=== PATIENT | female | born 1995 | race Caucasian/White ===

== ENCOUNTER → 2018-04-13 | Outpatient (CLI) | payer BC | LOC: M RAD 09:52 | DX: R51 Headache (principal); S06.0X0A Concussion without loss of consciousness, initial encounter | CPT/HCPCS: 70450 ==

== ENCOUNTER → 2019-12-31 | Outpatient (CLI) | payer BC ==
[~2019-12-31] MED LIST: PRENTAB9 PO
--- NOTE | 2020-01-31 11:15 | REP ---
OBSTETRIC ULTRASOUND FOR ANATOMY Delay in rejporting results from hospital computer malfunction as a result of malware. FINDINGS: There is a single intrauterine gestation in a transverse lie with the head to the maternal right. The placenta is posterior, grade 0 with no previa or abruptio. Estimated gestational age by today's ultrasound is 20 weeks 2 days. Estimated date of delivery (INES) is 05/21/2020. heart rate is 140 beats per minute. Estimated weight is 324 grams. This is the 60th percentile. Subjectively the amniotic fluid volume is normal. The cervix measures 3.3 cm in length. The following anatomic structures are suboptimally demonstrated: spine, four chamber view of the heart, cardiac ventricular outflow tracts, face, and upper lip. A dedicated follow-up study of these structures might be considered. The following structures are unremarkable: Cisterna magna, cavum septum pellucidum, thalami, stomach, kidneys, bladder, three-vessel cord, cord insertion, upper and lower extremities. MTDD
== END ==
LOC: MERGE 09:44 → M WHC 09:44
PROVIDERS: ATTEND Advanced Practice Midwife
DX: O99.212 Obesity complicating pregnancy, second trimester (principal); Z3A.20 20 weeks gestation of pregnancy

== ENCOUNTER → 2020-01-23 | Outpatient (CLI) | payer BC ==
--- NOTE | 2020-01-31 12:56 | REP ---
OBSTETRIC SONOGRAPHY: HISTORY: Follow up anatomy. FINDINGS: Scanning through the gravid uterus demonstrates a single living intrauterine gestation in a breech lie. The placenta is posterior grade 1 without evidence of previa or abruption. Amniotic fluid is subjectively normal. Closed cervical length measures 3.7 cm, viewed transabdominally. heart rate is recorded at 136 beats per minute. The spine, left-sided stomach, kidneys and bladder, four chamber heart with left and right ventricular outflow tract views, urinary bladder, three vessel cord, abdominal wall cord insertion and upper and lower extremities were viewed along with face and lips. These structures are felt to be unremarkable. BIOMETRY CHART: BPD 57 mm 23 weeks 4 days Head circumference 210 mm 23 weeks 1 day Abdominal circumference 184 mm 23 weeks 2 days Femur length 42 mm 23 weeks 6 days Humeral length 41 mm 25 weeks 1 day Estimated weight is 596 grams, 65th percentile. IMPRESSION: Viable single intrauterine gestation at 23 weeks 4 days. INES is May 17, 2020. MTDD
== END ==
LOC: M WHC 13:04
PROVIDERS: ATTEND Advanced Practice Midwife
DX: Z34.82 Encounter for supervision of other normal pregnancy, second trimester (principal)

== ENCOUNTER → 2020-02-26 | Outpatient (CLI) | payer BC ==
[2020-02-26 14:11] LABS: BASO % 0.2 % (0.0-1.0); EOS # 0.1 10^3/uL (0.0-0.5); HEMATOCRIT 35.7 % (36.0-47.0); HEMOGLOBIN 11.6 g/dl (12.0-15.5); LYMPH # 1.6 10^3/uL (1.5-5.0); LYMPH % 13.6 % (24.0-44.0); MEAN CORPUSCULAR HEMOGLOBIN 28.6 pg (27.0-33.0); MEAN CORPUSCULAR HGB CONC 32.5 g/dl (32.0-36.5); MEAN CORPUSCULAR VOLUME 88.1 fl (80.0-96.0); MONO # 0.7 10^3/uL (0.0-0.8); MONO % 5.9 % (0.0-5.0); NEUTROPHILS # 9.2 10^3/uL (1.5-8.5); NEUTROPHILS % 77.9 % (36.0-66.0); PLATELET COUNT, AUTOMATED 348 10^3/uL (150-450); RED BLOOD COUNT 4.05 10^6/uL (4.00-5.40); WHITE BLOOD COUNT 11.8 10^3/uL (4.0-10.0)
== END ==
LOC: M PLALAB 10:08
PROVIDERS: ATTEND Advanced Practice Midwife
DX: Z34.82 Encounter for supervision of other normal pregnancy, second trimester (principal); Z3A.00 Weeks of gestation of pregnancy not specified
CPT/HCPCS: 36415; 82950; 85025; 86850; 86900; 86901; J2790

== ENCOUNTER 2020-02-27 19:41 | Outpatient (CLI) | payer BC ==
[~2020-02-27] VITALS: Ht 157.5 cm; Wt 96.2 kg
[2020-02-27 20:03] VITALS: BP 136/80
[2020-02-27] MEDS ORDERED: PRENTAB9 PO (20:07)
[2020-02-27] MEDS ORDERED: RHOGAM 300 MCG (1500 IU) INJ (J2790) IM ONE (21:15)
[2020-02-27 21:57] VITALS: BP 130/81
[2020-02-27 22:16] VITALS: BP 131/84
[2020-02-27 22:40] VITALS: BP 123/72
== END 2020-02-27 22:36 | disposition home or self-care (01) ==
LOC: M LDO 19:41
PROVIDERS: ATTEND Specialist
DX: O99.89 Other specified diseases and conditions complicating pregnancy, childbirth and the puerperium (principal); V49.9XXA Car occupant (driver) (passenger) injured in unspecified traffic accident, initial encounter; Z3A.28 28 weeks gestation of pregnancy
CPT/HCPCS: 36415; 85460; 86850; 86900; 86901; 96372; G0378; G0463; J2790

== ENCOUNTER → 2020-04-02 | Outpatient (CLI) | payer BC, OTHER, SELFPAY ==
[~2020-04-02] MED LIST changes: +TUMS500C PO
== END ==
LOC: M LAB 08:11
PROVIDERS: ATTEND Obstetrics & Gynecology
DX: R73.09 Other abnormal glucose (principal)

== ENCOUNTER → 2020-04-24 | Outpatient (REF) | payer BC | LOC: M SFHCWAGY 13:12 | PROVIDERS: ATTEND Advanced Practice Midwife | DX: O99.213 Obesity complicating pregnancy, third trimester (principal); E66.9 Obesity, unspecified; Z3A.00 Weeks of gestation of pregnancy not specified ==

== ENCOUNTER → 2020-04-29 | Outpatient (CLI) | payer BC, OTHER ==
--- NOTE | 2020-04-29 13:24 | REP ---
INDICATION: SIZE DATE DICREPANCY,GROWTH,ODELL COMPARISON: 01/23/2020 TECHNIQUE: Transabdominal obstetrical ultrasound with color Doppler evaluation. FINDINGS: Examination demonstrates a single live intrauterine in cephalic presentation. motion is identified by technologist. Placenta is noted posterior and grade 2 without evidence for placenta previa or abruption. Amniotic fluid volume is normal. Cervix appears closed.. Gestational age by LMP 36 weeks 6 days with INES 05/21/2020. Gestational age by current measurements 36 weeks 4 days with INES 05/23/2020. FHR equals 139 beats per minute. ODELL: 19.8 cm (7.5-24.5) BPD: 8.9 cm thirty-five weeks 6 days HC: 32.7 cm 37 weeks 1 day AC: 32.5 cm 36 weeks 3 days FL: 7.2 cm 37 weeks 0 days HL: 6.2 cm 36 weeks 1 day HC/AC: 1.01 Estimated weight 2982 grams (48thpercentile). IMPRESSION: Single live advanced gestation in cephalic presentation demonstrating appropriate estimated weight and growth. <Electronically signed by Chris Bejarano > 04/29/20 [id number]
== END ==
LOC: M WHC 12:13
PROVIDERS: ATTEND Advanced Practice Midwife
DX: O26.843 Uterine size-date discrepancy, third trimester (principal); Z3A.36 36 weeks gestation of pregnancy

== ENCOUNTER 2020-05-05 22:23 | Outpatient (CLI) | payer BC, OTHER ==
[~2020-05-05] VITALS: Ht 157.5 cm; Wt 96.8 kg
[~2020-05-05 22:23] MED LIST changes: -TUMS500C PO
[2020-05-05 22:45] VITALS: BP 125/68
[2020-05-05 22:50] VITALS: BP 127/75
[2020-05-05] MEDS ORDERED: TUMS500C PO (23:04)
--- NOTE | 2020-05-05 23:33 | IPNPDOC ---
Obstetrical Progress Note Date of Service May 05, 2020 Subjective 24 yo G1 at 37 5/7 weeks with increasing contractions throughout the day. They started at every 15 minutes, then increased to every 8 minutes. No VB, good movement. Objective Vital Signs Date Time Temp Pulse Resp B/P (MAP) Pulse Ox O2 Delivery O2 Flow Rate FiO2 05/05/20 22:50 110 18 127/75 (92) 05/05/20 22:45 98.0 Assessment Variability: Moderate Accelerations: Positive Decelerations: None Heart Rate Tracing: Category I Tocometer Contractions: Yes Frequency: irregular Duration: less than 60 seconds Strength: palpated as mild Sterile Vaginal Examination Dilation: 1cm Effacement (%): 30% Station: -3 Cervical Consistency: Medium Cervical Position: Posterior Assessment and Plan Age: 24 : 1 Term: 0 Status: Reassuring Additional Comments 24 yo G1 at 37 5/7 weeks with contractions, not in labor Pt observed for extended time No sign of labor oral hydration fu office 05/06/2020 as scheduled NICOLE LEAVITT MD May 05, 2020 23:33
== END 2020-05-05 23:40 | disposition home or self-care (01) ==
LOC: M LDO 22:23
PROVIDERS: ATTEND Specialist
DX: O26.893 Other specified pregnancy related conditions, third trimester (principal); O47.1 False labor at or after 37 completed weeks of gestation; Z3A.37 37 weeks gestation of pregnancy

== ENCOUNTER 2020-05-20 12:54 | Inpatient (IN) | payer BC, OTHER ==
[~2020-05-20] VITALS: Ht 157.5 cm; Wt 94.4 kg
[2020-05-20] VITALS (10 sets, daily range): BP systolic 110–139; BP diastolic 67–92
[~2020-05-20 12:54] MED LIST changes: +TUMS500C PO
--- NOTE | 2020-05-20 14:37 | HPE ---
HISTORY AND PHYSICAL DATE OF ADMISSION: 05/20/2020 HISTORY OF PRESENT ILLNESS: Fiordaliza is a 24-year-old 2 para 0-0-1-0 at 39 and 6/7 weeks gestation with an EDC of 05/21/20 based on first trimester ultrasound. She presents to Labor and Delivery today following routine appointment in the office where she was noted to have elevated blood pressure x2. She denies a headache, visual disturbances, epigastric pain and right upper quadrant discomfort. She denies vaginal bleeding, leakage of fluid and regular painful contractions. The fetus has been active. Her care was initiated at [facility] in the first trimester. course complicated by former smoker, she quit when she became and obesity. OBSTETRIC HISTORY: Elective termination of . OBSTETRIC LABS: O negative, antibody screen negative, syphilis negative, gonorrhea and chlamydia negative, hepatitis B surface antigen negative, Hep C antibody non-reactive, HIV non-reactive, rubella immune. GBS abnormal at 139. Three hour gestational glucose tolerance test normal. Fasting 93, one hour 157, two hour 166 and three hour 124. GBS is negative. PAST MEDICAL HISTORY: Childhood varicella. Obesity. PAST SURGICAL HISTORY: None. FAMILY HISTORY: Leukemia and kidney cancer. SOCIAL HISTORY: The patient is single, however the father of the baby is en route to the hospital. She is a nonsmoker. She denies alcohol and drug use. She denies a history of sexually transmitted infections. She denies a history of abuse, physical, sexual and emotional. ALLERGIES: No known drug allergies. CURRENT MEDICATIONS: 1. vitamin. OBJECTIVE: VITAL SIGNS: Temperature 98.1, pulse 111, BP is 133/73, 134/75, 138/92. heart rate is 135 with moderate variability, positive accelerations, no decelerations. There is no pattern of regular contractions. ABDOMEN: Her abdomen is gravid, cephalic, presentation. Estimated weight approximately 8 pounds. GENITALIA: Sterile vaginal exam: 2 to 3 cm dilated, 50% effaced, -3 station, posterior, moderate texture, no show with the exam. ASSESSMENT: Intrauterine at 39 and 6/7 weeks, heart rate Category 1. Gestational hypertension/preeclampsia. PLAN: Admit the patient to Labor and Delivery for induction of labor per consult with Dr. Thad Feliciano. Routine laboratories with the addition of a preeclamptic profile and a spot urine. Saline lock for IV access. Out of bed ad bautista. Regular diet at this time. Start Misoprostol 50 mcg p.o. q. 4 hours for cervical ripening. Will likely start IV Pitocin, consider assisted rupture of membranes for labor augmentation. The patient desires to avoid an epidural. I did review risks, benefits and alternatives. All of her questions have been answered. I did verbally consent her for emergency surgery and blood products if they are necessary. I do anticipate cervical ripening and labor.
[2020-05-20] MEDS: miSOPROStol 50MCG 1/2 TABLET PO SCH ×2 (15:00→19:59)
[2020-05-20 15:34] LABS: HEMATOCRIT 38.1 % (36.0-47.0); HEMOGLOBIN 11.7 g/dl (12.0-15.5); MEAN CORPUSCULAR HEMOGLOBIN 25.1 pg (27.0-33.0); MEAN CORPUSCULAR HGB CONC 30.7 g/dl (32.0-36.5); MEAN CORPUSCULAR VOLUME 81.8 fl (80.0-96.0); PLATELET COUNT, AUTOMATED 386 10^3/uL (150-450); RED BLOOD COUNT 4.66 10^6/uL (4.00-5.40); WHITE BLOOD COUNT 11.5 10^3/uL (4.0-10.0)
[2020-05-20 15:53] LABS: ALT/SGPT 13 U/L (12-78); BILIRUBIN,TOTAL 0.4 MG/DL (0.2-1.0); CREATININE FOR GFR 0.77 MG/DL (0.55-1.30); GLOMERULAR FILTRATION RATE > 60.0 (>60); LDH LACTATE DEHYDROGENASE 157 U/L (84-246); URIC ACID 6.7 MG/DL (2.6-6.0)
[2020-05-20 15:54] LABS: CREATININE,RANDOM URINE 92.6 MG/DL; TOTAL PROTEIN,RANDOM URINE 18.6 MG/DL (0.0-12.0)
[2020-05-21] VITALS (52 sets, daily range): BP systolic 101–183; BP diastolic 55–104
[2020-05-21] MEDS: miSOPROStol 50MCG 1/2 TABLET PO SCH (00:27)
[2020-05-21] MEDS ORDERED: OXYTOCIN DRIP 30 UNITS in IV 1 EA IV SCH ×2 (03:15→23:55)
[2020-05-21] MEDS: LR 1,000 ML IV SCH ×4 (04:28→17:28)
[2020-05-21] MEDS ORDERED: BUTORPHANOL 2 MG/ML INJ (J0595) IV PRN (09:45)
[2020-05-21] MEDS ORDERED: PROMETHAZINE INJ 25 MG/ML VIAL (J2550) IV ONE (09:45)
--- NOTE | 2020-05-21 09:47 | IPNPDOC ---
Text Note Date of Service The patient was seen on 05/21/20. NOTE Intrapartum Note Fiordaliza is a 24yo with SIUP at 40w0d undergoing IOL for GHTN (urine protein:creat 0.2) diagnosed yesterday at routine OB visit. She had IOL started with cytotec and this morning at 0429 pitocin was started. She is starting to feel strong painful ctx and is interested in pain meds. Vitals wnl, afebrile Cat I FHRT with +accels, -decels, mod elsie Ctx q2-3min SCE: /-2, posterior Plan to continue pitocin, titrate per protocol IV stadol 2mg q4hr prn with IV phenergan 12.5mg once in latent labor, candidate for epidural in active labor Will continue to closely monitor Safe to proceed Eda So MD VSMeli, I+O VSMeli I+O Laboratory Tests 05/20/20 14:23 Vital Signs Date Time Temp Pulse Resp B/P (MAP) Pulse Ox O2 Delivery O2 Flow Rate FiO2 05/21/20 07:26 97.9 78 16 Room Air 05/21/20 06:30 124/82 (96) Eda So MD May 21, 2020 09:47
[2020-05-21] MEDS ORDERED: FENTANYL 2MCG/ML ROPIVACAINE 0.2% IN 0.9% NACL 100ML IVBAG As Ordered ONE (14:35)
[2020-05-21 15:08] LABS: HEMATOCRIT 37.6 % (36.0-47.0); HEMOGLOBIN 11.6 g/dl (12.0-15.5); MEAN CORPUSCULAR HEMOGLOBIN 25.3 pg (27.0-33.0); MEAN CORPUSCULAR HGB CONC 30.9 g/dl (32.0-36.5); MEAN CORPUSCULAR VOLUME 82.1 fl (80.0-96.0); PLATELET COUNT, AUTOMATED 367 10^3/uL (150-450); RED BLOOD COUNT 4.58 10^6/uL (4.00-5.40)
[2020-05-21] MEDS ORDERED: ONDANSETRON 4MG/2ML VIAL IV PRN (16:00)
[2020-05-21] MEDS ORDERED: LACTATED RINGER'S 1000 ML IV PRN (16:00)
[2020-05-21] MEDS ORDERED: NALOXONE INJ 0.4MG/1ML VIAL (J2310 PER 1MG) IV PRN (16:00)
[2020-05-21] MEDS ORDERED: ePHEDrine SULFATE 25 MG/5 ML(5MG/ML) SYRINGE IV PRN (16:00)
[2020-05-21] MEDS ORDERED: REFRIGERATOR IV KEYS XX PRN (16:00)
[2020-05-21] MEDS ORDERED: diphenhydrAMINE 50MG/ML VIAL (J1200) IV PRN (16:00)
[2020-05-21] MEDS ORDERED: FENTANYL/ROPIVACAINE/NACL BAG 100 ML EPIDURAL SCH (16:00)
[2020-05-21] MEDS ORDERED: EPIDURAL COMMENT XX SCH (16:00)
[2020-05-21] MEDS ORDERED: EPIDURAL/PCA KEYS XX PRN (16:00)
--- NOTE | 2020-05-21 18:03 | IPNPDOC ---
Text Note Date of Service The patient was seen on 05/21/20. NOTE Intrapartum Note Pt doing well, pain controlled with epidural, feeling some rectal pressure with ctx. Vitals wnl, afebrile Cat I FHRT with bl 125 +accels -decels mod elsie [place]: ctx q2-4min SCE: 8-9/80/-1, AROM performed with clear fluid noted. FSE placed to facilitate easier FHRT Plan to continue to titrate pitocin to adequate ctx pattern Will continue to closely monitor Safe to proceed Eda So MD VS,Meli, I+O VSMeli I+O Laboratory Tests 05/21/20 14:59 Vital Signs Date Time Temp Pulse Resp B/P (MAP) Pulse Ox O2 Delivery O2 Flow Rate FiO2 05/21/20 10:45 16 05/21/20 10:13 97.5 Room Air 05/21/20 07:26 78 05/21/20 06:30 124/82 (96) Eda So MD May 21, 2020 18:03
[2020-05-22] MEDS ORDERED: IBUPROFEN 800 MG TAB PO PRN
[2020-05-22] MEDS ORDERED: MEASLES,MUMPS,RUBELLA VACCINE INJ (MMR-II) (90707) SC SCH
[2020-05-22] MEDS ORDERED: IBUPROFEN 600MG TAB PO PRN
[2020-05-22] MEDS ORDERED: BENZOCAINE 20% HEMORRHOIDAL OINTMENT 28GM TUBE TOP PRN
[2020-05-22] MEDS ORDERED: ACETAMINOPHEN TAB 650MG DOSE (2X325MG) PO PRN
[2020-05-22] MEDS ORDERED: RHOGAM 300 MCG (1500 IU) INJ (J2790) IM SCH
[2020-05-22 00:01] VITALS: BP 131/83
[2020-05-22 00:46] VITALS: BP 163/88
[2020-05-22 00:47] VITALS: BP 145/80
[2020-05-22 01:34] VITALS: BP 134/80
--- NOTE | 2020-05-22 04:28 | DNPDOC ---
[facility] Delivery Note Delivery Note DATE OF DELIVERY: 05/22/2020 PREDELIVERY DIAGNOSIS: 40w0d IOL for GHTN POST DELIVERY DIAGNOSIS: Delivered. PROCEDURE: Spontaneous vaginal delivery PILOT INSTRUCTOR: Dr. Eda So MD ANESTHESIA: epidural ESTIMATED BLOOD LOSS: 300 mL. FINDINGS: 7 pound 0 ounce (3170g) female infant, Score 9/9 DELIVERY SUMMARY: Fiordaliza is a 24yo [id number] s/p uncomplicated at 40w0d after undergoing IOL for GHTN, delivering at 2313 on 05/21/20. She had induction started with cytotec, then received IV pitocin. She received an epidural and had AROM, clear. She progressed over time to C/C/0 and did passive descent for a time, until she began pushing. With good maternal effort, head delivered OA and restituted LUAN. Left anterior shoulder delivered followed by posterior shoulder and corpus. There was a right compound hand noted. placed on maternal abdomen and had lusty cry, apgars 9/9. Nose and mouth suctioned with bulb suction. After two minutes, cord clamped x2 and cut by FOB. With fundal massage and traction on the cord, placenta delivered spontaneously and intact with 3 vessel centrally inserted umbilical cord. Cord blood obtained for MBT O neg. More uterine massage performed, IV pitocin bolus given, and fundus firmed to u-2cm. Hemostasis noted. Inspection of perineum and vagina revealed small 2mll and two small bilateral labial lacerations, repaired with 3-0 vicryl in routine fashion with complete reapproximation and hemostasis. All counts correct x2. Mom and infant were doing well when I left the room. MD Judah Reyes Katrina D MD May 22, 2020 04:28
[2020-05-22 05:57] VITALS: BP 124/81
[2020-05-22] MEDS: DOCUSATE SODIUM 100MG CAPSULE PO SCH ×2 (08:04→21:05)
[2020-05-22] MEDS: PRENATAL VITAMINS CHEWABLE TABLET PO SCH (08:04)
[2020-05-22] MEDS: ACETAMINOPHEN 500 MG TAB PO PRN (15:12)
[2020-05-22 18:00] VITALS: BP 116/81
[2020-05-23 05:40] VITALS: BP 115/74
[2020-05-23] MEDS: DOCUSATE SODIUM 100MG CAPSULE PO SCH (08:47)
[2020-05-23] MEDS: PRENATAL VITAMINS CHEWABLE TABLET PO SCH (08:48)
[2020-05-23] MEDS: ACETAMINOPHEN 500 MG TAB PO PRN (08:48)
[2020-05-23 17:55] VITALS: BP 138/89
== END 2020-05-23 18:10 | disposition home or self-care (01) | DRG 560 ==
LOC: M LDI 12:54 → M OBS 05-22 01:18
PROVIDERS: ADMIT Advanced Practice Midwife; ATTEND Advanced Practice Midwife
PROC: 10E0XZZ Delivery of Products of Conception, External Approach (ICD-10-PCS; principal; 2020-05-21)
PROC: 3E0P7GC Introduction of Other Therapeutic Substance into Female Reproductive, Via Natural or Artificial Opening (ICD-10-PCS; 2020-05-21)
PROC: 10907ZC Drainage of Amniotic Fluid, Therapeutic from Products of Conception, Via Natural or Artificial Opening (ICD-10-PCS; 2020-05-21)
PROC: 0HQ9XZZ Repair Perineum Skin, External Approach (ICD-10-PCS; 2020-05-21)
PROC: 0KQM0ZZ Repair Perineum Muscle, Open Approach (ICD-10-PCS; 2020-05-21)
DX: O13.4 Gestational [pregnancy-induced] hypertension without significant proteinuria, complicating childbirth (principal); O64.5XX0 Obstructed labor due to compound presentation, not applicable or unspecified; Z3A.40 40 weeks gestation of pregnancy; Z37.0 Single live birth; O99.214 Obesity complicating childbirth; E66.9 Obesity, unspecified; O70.1 Second degree perineal laceration during delivery; O70.0 First degree perineal laceration during delivery

== ENCOUNTER 2020-06-13 01:51 | Inpatient (IN) | payer OTHER ==
[~2020-06-13] VITALS: Ht 157.5 cm; Wt 84.8 kg
[2020-06-13] MEDS ORDERED: ACET-861 PO (01:57)
[2020-06-13] MEDS ORDERED: GAS125CH10 PO (01:57)
[2020-06-13] MEDS ORDERED: KETOROLAC 30 MG/ML 1ML VIAL IV ONE (06:00)
[2020-06-13] MEDS ORDERED: ONDANSETRON 4MG/2ML VIAL IV ONE (06:00)
[2020-06-13 06:24] LABS: BASO % 0.3 % (0.0-1.0); EOS # 0.1 10^3/uL (0.0-0.5); EOS % 0.4 % (0.0-3.0); HEMOGLOBIN 12.7 g/dl (12.0-15.5); LYMPH # 0.9 10^3/uL (1.5-5.0); LYMPH % 7.3 % (24.0-44.0); MEAN CORPUSCULAR HEMOGLOBIN 25.1 pg (27.0-33.0); MEAN CORPUSCULAR HGB CONC 30.2 g/dl (32.0-36.5); MEAN CORPUSCULAR VOLUME 83.2 fl (80.0-96.0); MONO # 0.4 10^3/uL (0.0-0.8); MONO % 3.7 % (0.0-5.0); NEUTROPHILS # 10.2 10^3/uL (1.5-8.5); PLATELET COUNT, AUTOMATED 399 10^3/uL (150-450); RED BLOOD COUNT 5.05 10^6/uL (4.00-5.40); WHITE BLOOD COUNT 11.6 10^3/uL (4.0-10.0)
[2020-06-13 06:58] LABS: ALBUMIN 3.4 GM/DL (3.2-5.2); ALT/SGPT 359 U/L (12-78); BILIRUBIN,DIRECT 1.4 MG/DL (0.0-0.2); BILIRUBIN,TOTAL 2.1 MG/DL (0.2-1.0); BLOOD UREA NITROGEN 15 MG/DL (7-18); CALCIUM LEVEL 9.2 MG/DL (8.5-10.1); CARBON DIOXIDE LEVEL 28 MEQ/L (21-32); CHLORIDE LEVEL 107 MEQ/L (98-107); CREATININE FOR GFR 0.92 MG/DL (0.55-1.30); GLOMERULAR FILTRATION RATE > 60.0 (>60); GLUCOSE, FASTING 111 MG/DL (70-100); LIPASE 20709 U/L (73-393); POTASSIUM SERUM 4.4 MEQ/L (3.5-5.1); SODIUM LEVEL 139 MEQ/L (136-145); TOTAL PROTEIN 6.9 GM/DL (6.4-8.2)
[2020-06-13] MEDS ORDERED: NS 1,000 ML IV ONE (08:15)
--- NOTE | 2020-06-13 08:29 | REP ---
INDICATION: RUQ pain COMPARISON: None. TECHNIQUE: Real time newman scale ultrasound examination using curved array transducer. FINDINGS: Liver is relatively normal in appearance and includes subcentimeter cyst in the right lobe. Visualized portions of the pancreas are unremarkable. Gallbladder demonstrates wall thickening to 3.8 mm and gallstones without pericholecystic fluid or biliary ductal dilatation. The common bile duct measures 4.2 mm diameter. Right kidney is normal in reniform shape without hydronephrosis and measures 10.3 x 4.0 x 3.3 cm. No ascites in the visualized right upper quadrant. IMPRESSION: 1. Cholelithiasis and gallbladder wall thickening. Findings are equivocal for acute cholecystitis and should be correlated clinically. No biliary ductal dilatation noted. 2. Incidental sub cm benign-appearing hepatic cyst. <Electronically signed by Chris Bejarano > 06/13/20 0827
[2020-06-13] MEDS ORDERED: PREN1TAB9 PO (08:45)
[2020-06-13] MEDS ORDERED: ACETAMINOPHEN TAB 650MG DOSE (2X325MG) PO PRN (10:30)
[2020-06-13] MEDS ORDERED: KETOROLAC 30 MG/ML 1ML VIAL IV PRN (10:30)
--- NOTE | 2020-06-13 10:36 | HPEPDOC ---
General Date of Admission 06/13/20 Date of Service: Jun 13, 2020 Chief Complaint The patient is a 24-year-old female admitted with a reason for visit of Chest And Back Pain. Source: Patient Exam Limitations: No limitations Timing/Duration: Day(s) Severity: Moderate History of Present Illness Patient is 24 years old female 3 months presented to the hospital with severe abdominal pain. Patient stated that she's been having abdominal pain at the right upper quadrant with radiation to the back for past 48 hours. Patient stated that she had a nausea but not vomiting. In ER patient was found to have elevated lipase level 20,700, total bilirubin 2.1, direct bilirubin 1.4, AST 452, ALT 287. Ultrasound showed . Cholelithiasis and gallbladder wall thickening. Findings are equivocal for acute cholecystitis and should be correlated clinically. No biliary ductal dilatation noted. Home Medications Scheduled Acetaminophen (Acetaminophen) 500 Mg Tablet, 1,000 MG PO Q6H for fever, (Reported) 114/Iron A-G/Folate 1 (Prenate Elite Tablet) 1 Each Tablet, 1 TAB PO DAILY, (Reported) Scheduled PRN Simethicone (Gas Relief) 125 Mg Tab.chew, 125 MG PO Q6H PRN for GAS PAIN, (Reported) Allergies Coded Allergies: Common Ragweed (Verified Allergy, Mild, 02/27/20) Past Medical History Medical History Tobacco abuse Surgical History No surgical history Family History Father has kidney cancer Social History * Smoker: current smoker Alcohol: Denies Drugs: denies A-FIB/CHADSVASC A-FIB History Current/History of A-Fib/PAF?: No Current PO Anticoag Therapy: No Review of Systems Constitutional: Denies: Chills, Fever Eyes: Denies: Pain ENT: Denies: Head Aches Skin: Denies: Rash, Lesions Pulmonary: Denies: Dyspnea Cardiovascular: Denies: Chest Pain, Palpitations Gastrointestinal: Reports: Nausea, Abdominal Pain Genitourinary: Denies: Dysuria Endocrine: Denies: Polydipsia Musculoskeletal: Denies: Neck Pain Neurological: Denies: Weakness Psych: Reports: Mood Normal Physical Examination General Exam: Positive: Alert, Cooperative Eye Exam: Positive: PERRLA ENT Exam: Positive: Atraumatic Neck Exam: Positive: Supple; Negative: JVD Chest Exam: Positive: Clear to auscultation Heart Exam: Positive: Rate Normal Telemetry: Positive: No significant arrhythmia Abdomen Exam: Positive: BS Hypoactive, Tenderness (mild right upper quadrant) Extremity Exam: Negative: Clubbing Skin Exam: Positive: Nl turgor and temperature Neuro Exam: Positive: Normal Gait, Strength at 5/5 X4 ext Psych Exam: Positive: Mental status NL Vital Signs Vital Signs Date Time Temp Pulse Resp B/P (MAP) Pulse Ox O2 Delivery O2 Flow Rate FiO2 06/13/20 08:39 83 115/71 (86) 96 Room Air 06/13/20 06:50 16 06/13/20 01:51 97.6 Laboratory Data Labs 24H Laboratory Tests 2 06/13/20 06:15: Immature Granulocyte % (Auto) 0.3, Neutrophils (%) (Auto) 88.0H, Lymphocytes (%) (Auto) 7.3L, Monocytes (%) (Auto) 3.7, Eosinophils (%) (Auto) 0.4, Basophils (%) (Auto) 0.3, Neutrophils # (Auto) 10.2H, Lymphocytes # (Auto) 0.9L, Monocytes # (Auto) 0.4, Eosinophils # (Auto) 0.1, Basophils # (Auto) 0.0, Nucleated Red Blood Cells % (auto) 0.0, Anion Gap 4L, Glomerular Filtration Rate > 60.0, Calcium Level 9.2, Total Bilirubin 2.1H, Direct Bilirubin 1.4H, Aspartate Amino Transf (AST/SGOT) 452H, Alanine Aminotransferase (ALT/SGPT) 359H, Alkaline Phosphatase 287H, Total Protein 6.9, Albumin 3.4, Albumin/Globulin Ratio 1.0L, Lipase [id number] 06/13/20 08:24: Coronavirus (COVID-19)(PCR) NEGATIVE CBC/BMP Laboratory Tests 06/13/20 06:15 Assessment/Plan Patient is 24 years old female 3 months presented to the hospital with severe abdominal pain. Patient stated that she's been having abdominal pain at the right upper quadrant with radiation to the back for past 48 hours. Patient stated that she had a nausea but not vomiting. In ER patient was found to have elevated lipase level 20,700, total bilirubin 2.1, direct bilirubin 1.4, AST 452, ALT 287. Ultrasound showed . Cholelithiasis and gallbladder wall thicke chin. Findings are equivocal for acute cholecystitis and should be correlated clinically. No biliary ductal dilatation noted. Problems (1) Gallstone pancreatitis Status: Acute Problem Text: Ultrasound showed no CBD dilatation Lipase elevated to 20,000, alkaline phosphatase 257 Patient was pain-free when I saw her Most likely patient passed a stone Aggressive IV fluid Pain management Clear liquid diet Appreciate/agree with surgical consult Plan / VTE VTE Prophylaxis Ordered?: Yes RAGHAVENDRA LARA DO Jun 13, 2020 10:36
[2020-06-13 11:05] LABS: TRIGLYCERIDES LEVEL 101 MG/DL (<150)
[2020-06-13 13:35] VITALS: BP 128/71
[2020-06-13] MEDS: NS 1,000 ML IV SCH ×3 (14:23→20:10)
[2020-06-13 20:00] VITALS: BP 114/72
[2020-06-13] MEDS: HEPARIN SOD (PORCINE) 5000UNITS/ML 1ML VIAL/SYRINGE SC SCH (20:11)
[2020-06-14] MEDS: NS 1,000 ML IV SCH ×3 (00:05→08:24)
[2020-06-14 06:00] VITALS: BP 108/67
[2020-06-14 06:20] LABS: HEMATOCRIT 34.2 % (36.0-47.0); MEAN CORPUSCULAR HEMOGLOBIN 25.3 pg (27.0-33.0); MEAN CORPUSCULAR HGB CONC 29.2 g/dl (32.0-36.5); MEAN CORPUSCULAR VOLUME 86.4 fl (80.0-96.0); PLATELET COUNT, AUTOMATED 306 10^3/uL (150-450); RED BLOOD COUNT 3.96 10^6/uL (4.00-5.40); WHITE BLOOD COUNT 6.6 10^3/uL (4.0-10.0)
[2020-06-14 06:59] LABS: ALBUMIN 2.7 GM/DL (3.2-5.2); ALT/SGPT 205 U/L (12-78); BILIRUBIN,TOTAL 0.5 MG/DL (0.2-1.0); BLOOD UREA NITROGEN 10 MG/DL (7-18); CARBON DIOXIDE LEVEL 24 MEQ/L (21-32); CHLORIDE LEVEL 114 MEQ/L (98-107); CREATININE FOR GFR 0.77 MG/DL (0.55-1.30); GLOMERULAR FILTRATION RATE > 60.0 (>60); GLUCOSE, FASTING 74 MG/DL (70-100); MAGNESIUM LEVEL 1.8 MG/DL (1.8-2.4); POTASSIUM SERUM 4.2 MEQ/L (3.5-5.1); SODIUM LEVEL 142 MEQ/L (136-145); TOTAL PROTEIN 5.3 GM/DL (6.4-8.2)
--- NOTE | 2020-06-14 07:38 | CR.PDOC ---
General Surgery Consultation Date of Consultation 06/13/20 History and Physical CONSULT REPORT FOR: Dr. Hill (hospitalist [facility]) REASON FOR CONSULTATION: Abdominal pain/gallstone pancreatitis HISTORY OF PRESENT ILLNESS: Patient is a healthy 24-year-old female who is about 3 weeks who presented to the emergency room with an roughly about 4 days on and off abdominal pain, exacerbated and worsened overnight with nausea. She has successful vaginal delivery in 05/20/2020 at 39 weeks to healthy baby girl and currently breast-feeding. She denies any prior biliary colic type pain, did not have any symptoms during her . For the past 4 days she reports some burning, intermittent, crampy pain centered on her upper epigastric area exacerbated with eating. She has been using Tums and Gas-X with intermittent, variable relief. Overnight this worsened increased in severity and became constant. She does presented to the emergency room early this morning. She was found to have evidence for acute pancreatitis associated with gallstones. She has been admitted to the hospitalist service was asked to see the patient for further recommendations. PAST MEDICAL HISTORY: 1. Obesity with BMI 38. 2. 3 weeks , normal vaginal delivery PAST SURGICAL HISTORY: INCLUDES: 1. No past surgical history. PREVIOUS ANESTHESIA REACTIONS: None ALLERGIES: Please see below. FAMILY HISTORY: Noncontributory. HOME MEDICATIONS: Please see below. REVIEW OF SYSTEMS: GENERAL: Patient was recovering at home after successful to a healthy baby girl. She is breast-feeding. She reports no residual shortness of breath, high blood pressure, leg swelling from her . She was in her usual state of health prior to starting for symptoms about 4 days ago. She denies any accompanying fevers or chills.. HEENT: Denies blurred vision and double vision. Denies ear symptoms. Denies hoarseness. NECK: Denies any neck pain CARDIOVASCULAR: Denies chest pain and palpitations. MUSCULOSKELETAL: Denies arthralgias, back pain and thrombophlebitis. SKIN: Denies rash. NEUROLOGIC: Denies any headaches. PSYCHIATRIC: Denies anxiety and depression. HEMATOLOGY/ONCOLOGY: Denies bleeding or clotting disorder. HEART: Denies any chest pains, palpitations, paroxysmal dyspnea, orthopnea. PULMONARY: Denies chronic cough, dyspnea and wheezing. GASTROINTESTINAL: See HPI. GENITOURINARY: Denies dysuria, frequency, hematuria and nocturia. ENDOCRINE: Denies polydipsia, polyphagia, polyuria, heat or cold intolerance. INFECTIOUS: Denies any recent upper respiratory tract infection, UTI, need for use of antibiotics. NUTRITION: Reports fair appetite. PHYSICAL EXAMINATION: VITALS SIGNS: Please see below. GENERAL APPEARANCE: Patient seen, laying in bed and appears comfortable. She reports that her pain is moderately better since her presentation. She is currently denying any nausea. SKIN: Warm and dry. No jaundice. HEENT: Normocephalic, atraumatic. [place] palpebral conjunctiva, anicteric sclerae. Lips and mucosa appear moist. NECK: Supple, no thyromegaly. No obvious jugular venous distention. LUNGS: Clear to auscultation bilaterally. No wheezing appreciated. HEART: No chest wall abnormalities. Regular rate and rhythm with no murmurs appreciated. ABDOMEN: Abdomen is obese, soft, nondistended. No evidence of umbilical or groin herniations. No prior surgical scars. Uterine fundus nonpalpable. Nontender on palpation over the epigastric area. No rebound or guarding. EXTREMITIES: No edema ANCILLARIES: . LABORATORY DATA: Please see below. IMAGING STUDIES: US of gallbladder IMPRESSION AND PLAN: Acute biliary pancreatitis cholelithiasis recent postopartum Patient symptoms is consistent with acute pancreatitis secondary to gallstones. She is clinically improving. No signs of severe systemic inflammatory response, severe dehydration. The pain is improved since presentation. She has a mild elevation of her LFTs, elevation of her lipase to 20,000 consistent with her history. She has evidence for gallstones on ultrasound. Since she is already getting better, coupled with the fact that she is recently , currently breast-feeding, I think we can manage her nonoperatively. started on clear liquids and we can advance her to a low fat diet if she is able to tolerate this. I spoke to her about performing an interval cholecystectomy. We can discharge her home in she's tolerating diet and her symptoms have improved. She can continue to breast-feed. I'll see her in the clinic and schedule her for interval cholecystectomy to prevent recurrence of symptoms within a month's time. Follow up with me in 1-2 weeks so we can schedule her surgery as an outpatient. She can temporarily hold breast-feeding 24 hours perioperatively and most likely can resume diet and breast-feeding after the cholecystectomy. Follow the LFTs. Most of the time this will improve on its own and does not need any ERCP or other intervention. Vital Signs Vital Signs Date Time Temp Pulse Resp B/P (MAP) Pulse Ox O2 Delivery O2 Flow Rate FiO2 06/13/20 13:35 98.8 82 16 128/71 (90) 96 Room Air Laboratory Data Labs 24H Laboratory Tests 2 06/13/20 06:15: Immature Granulocyte % (Auto) 0.3, Neutrophils (%) (Auto) 88.0H, Lymphocytes (%) (Auto) 7.3L, Monocytes (%) (Auto) 3.7, Eosinophils (%) (Auto) 0.4, Basophils (%) (Auto) 0.3, Neutrophils # (Auto) 10.2H, Lymphocytes # (Auto) 0.9L, Monocytes # (Auto) 0.4, Eosinophils # (Auto) 0.1, Basophils # (Auto) 0.0, Nucleated Red Blood Cells % (auto) 0.0, Anion Gap 4L, Glomerular Filtration Rate > 60.0, Calcium Level 9.2, Total Bilirubin 2.1H, Direct Bilirubin 1.4H, Aspartate Amino Transf (AST/SGOT) 452H, Alanine Aminotransferase (ALT/SGPT) 359H, Alkaline Phosphatase 287H, Total Protein 6.9, Albumin 3.4, Albumin/Globulin Ratio 1.0L, Triglycerides Level 101, Lipase [id number] 06/13/20 08:24: Coronavirus (COVID-19)(PCR) NEGATIVE CBC/BMP Laboratory Tests 06/13/20 06:15 Home Medications Scheduled Acetaminophen (Acetaminophen) 500 Mg Tablet, 1,000 MG PO Q6H for fever, (Reported) 114/Iron A-G/Folate 1 (Prenate Elite Tablet) 1 Each Tablet, 1 TAB PO DAILY, (Reported) Scheduled PRN Simethicone (Gas Relief) 125 Mg Tab.chew, 125 MG PO Q6H PRN for GAS PAIN, (Reported) Allergies Coded Allergies: Common Ragweed (Verified Allergy, Mild, 02/27/20) JENELLE TSANG MD Jun 13, 2020 15:47
[2020-06-14] MEDS: HEPARIN SOD (PORCINE) 5000UNITS/ML 1ML VIAL/SYRINGE SC SCH (08:24)
--- NOTE | 2020-06-14 20:57 | DS.PDOC ---
Discharge Summary General Date of Admission Jun 13, 2020 at 10:23 Date of Discharge 06/14/20 Discharge Summary PROCEDURES PERFORMED DURING STAY: [None]. ADMITTING DIAGNOSES: Gallstone pancreatitis DISCHARGE DIAGNOSES: Gallstone pancreatitis COMPLICATIONS/CHIEF COMPLAINT: Gallstone Pancreatitis. HISTORY OF PRESENT ILLNESS:Patient is 24 years old female 3 months presented to the hospital with severe abdominal pain. Patient stated that she's been having abdominal pain at the right upper quadrant with radiation to the back for past 48 hours. Patient stated that she had a nausea but not vomiting. In ER patient was found to have elevated lipase level 20,700, total bilirubin 2.1, direct bilirubin 1.4, AST 452, ALT 287. Ultrasound showed . Cholelithiasis and gallbladder wall thickening. Findings are equivocal for acute cholecystitis and should be correlated clinically. No biliary ductal dilatation noted. HOSPITAL COURSE: During hospital stay following issues addressed Gallstone pancreatitis Ultrasound showed no CBD dilatation Lipase elevated to 20,000, alkaline phosphatase 257 Patient was pain-free when I saw her Most likely patient passed a stone Patient received Aggressive IV fluid Pain management DISCHARGE MEDICATIONS: Please see below. ALLERGIES: Please see below. PHYSICAL EXAMINATION ON DISCHARGE: VITAL SIGNS: Please see below. GENERAL APPEARANCE: NAD HEENT: no scleral icterus, no JVD, EOMI CARDIOVASCULAR: S1S2 LUNGS: CTA ABDOMEN: soft & not tender w palpitation MUSCULOSKELETAL: no cyanosis, no swelling INTEGUMENT: no generalized palor NEUROLOGICAL: cranial nerve function from 2-12 intact intact, follows commands, speech not dysarthric LABORATORY DATA: Please see below. IMAGING: [facility] NAME: OLIVE CORTES DATE OF : 1995 AGE: 24 SEX: F REPORT #: [id number] ROOM: ED TECHNOLOGIST: Agustin DOCTOR: Frederick Michel M.D. Ordered for Date&Time: 06/13/20 0626 cc: [~ rep ct ivnm] Service Date&Time: 06/13/20 0810 This report is in Signed status. If this report is in a DRAFT status it has not yet been reviewed by the radiologist for accuracy. Thank you for having your radiology procedures performed at [facility] RADIOLOGY REPORT Date&Time printed: [~ rep prt dt last] [~ rep prt tm last] Page 2 of [address] [address] RADIOLOGY REPORT This report is in Signed status. If this report is in a DRAFT status it has not yet been reviewed by the radiologist for accuracy. Thank you for having your radiology procedures performed at [facility] RADIOLOGY REPORT Date&Time printed: [~ rep prt dt last] [~ rep prt tm last] Page 1 of 1 COMPARISON: None. TECHNIQUE: Real time newman scale ultrasound examination using curved array transducer. FINDINGS: Liver is relatively normal in appearance and includes subcentimeter cyst in the right lobe. Visualized portions of the pancreas are unremarkable. Gallbladder demonstrates wall thickening to 3.8 mm and gallstones without pericholecystic fluid or biliary ductal dilatation. The common bile duct measures 4.2 mm diameter. Right kidney is normal in reniform shape without hydronephrosis and measures 10.3 x 4.0 x 3.3 cm. No ascites in the visualized right upper quadrant. IMPRESSION: 1. Cholelithiasis and gallbladder wall thickening. Findings are equivocal for acute cholecystitis and should be correlated clinically. No biliary ductal dilatation noted. 2. Incidental sub cm benign-appearing hepatic cyst. <Electronically signed by Chris Bejarano > 06/13/20825 DD: Chris Bejarano MD 06/13/20823 DT: RONNIE 06/13/20825 DS: CHANDANA 06/13/2082306/13/20823 [~ rep ct labl] PROGNOSIS: Fair ACTIVITY: [As tolerated]. DIET: Avoid fatty food DISPOSITION: 01 Home, Self-Care. ITEMS TO FOLLOWUP ON ON OUTPATIENT: Follow-up with surgical team in 2-4 weeks for elective cholecystectomy DISCHARGE CONDITION: [Stable]. TIME SPENT ON DISCHARGE: Greater than 20 minutes. Vital Signs/I&Os Vital Signs Date Time Temp Pulse Resp B/P (MAP) Pulse Ox O2 Delivery O2 Flow Rate FiO2 06/14/20 06:00 98.6 71 17 108/67 (81) 96 Room Air I&O- Last 24 Hours up to 6 AM 06/14/20 06:00 Intake Total 5065 ml Balance 5065 ml Laboratory Data Labs 24H Laboratory Tests 2 06/14/20 05:47: Nucleated Red Blood Cells % (auto) 0.0, Anion Gap 4L, Glomerular Filtration Rate > 60.0, Calcium Level 8.0L, Magnesium Level 1.8, Total Bilirubin 0.5#, Aspartate Amino Transf (AST/SGOT) 102H, Alanine Aminotransferase (ALT/SGPT) 205H, Alkaline Phosphatase 197H, Total Protein 5.3#L, Albumin 2.7#L, Albumin/Globulin Ratio 1.0L CBC/BMP Laboratory Tests 06/14/20 05:47 Discharge Medications Scheduled Acetaminophen (Acetaminophen) 500 Mg Tablet, 1,000 MG PO Q6H for fever, (Reported) 114/Iron A-G/Folate 1 (Prenate Elite Tablet) 1 Each Tablet, 1 TAB PO DAILY, (Reported) Scheduled PRN Simethicone (Gas Relief) 125 Mg Tab.chew, 125 MG PO Q6H PRN for GAS PAIN, (Reported) Allergies Coded Allergies: Common Ragweed (Verified Allergy, Mild, 02/27/20) RAGHAVENDRA LARA DO Jun 14, 2020 20:57
== END 2020-06-14 11:29 | disposition home or self-care (01) | DRG 561 ==
LOC: M ED 01:51 → M ED INP 10:23 → M MSPAV 13:31
PROVIDERS: ADMIT Internal Medicine; ATTEND Internal Medicine
DX: O99.63 Diseases of the digestive system complicating the puerperium (principal); K81.0 Acute cholecystitis; K85.10 Biliary acute pancreatitis without necrosis or infection; J30.1 Allergic rhinitis due to pollen; F17.200 Nicotine dependence, unspecified, uncomplicated; E66.9 Obesity, unspecified; Z20.822 Contact with and (suspected) exposure to COVID-19

== ENCOUNTER 2020-07-23 08:59 | Inpatient (IN) | payer OTHER, SELFPAY ==
[~2020-07-23] VITALS: Ht 157.5 cm; Wt 86.2 kg
[~2020-07-23 08:59] MED LIST changes: +ACET-861 PO; +GAS125CH10 PO; +PREN1TAB9 PO
[2020-07-23] MEDS ORDERED: MORPHINE 2 MG/ML 1ML VIAL (J2270) IV ONE ×2 (09:15→15:00)
[2020-07-23] MEDS ORDERED: NS 1,000 ML IV ONE ×3 (09:15→16:00)
--- OUTSIDE RECORDS SUMMARY | 2020-07-23 09:26 | CCD ---
Author Author [facility] Organization [facility] Address Unknown Phone Unavailable Support Name Relationship Address Phone EDISON CORTES Next Of Kin [address] [facility] [address] [place] [address] UE Next Of Kin Unknown Unavailable [facility] Next Of Kin [address] [facility] [address] [place] [address] EDISON TODD Next Of Kin [phone] [facility] [address] [place] [address] EDISON CORTES [facility] [address] [place] [address] Unavailable Re-disclosure Warning The records that you are about to access may contain information from federally-assisted alcohol or drug abuse programs. If such information is present, then the following federally mandated warning applies: This information has been disclosed to you from records protected by federal confidentiality rules (42 CFR part 2). The federal rules prohibit you from making any further disclosure of this information unless further disclosure is expressly permitted by the written consent of the person to whom it pertains or as otherwise permitted by 42 CFR part 2. A general authorization for the release of medical or other information is NOT sufficient for this purpose. The Federal rules restrict any use of the information to criminally investigate or prosecute any alcohol or drug abuse patient.The records that you are about to access may contain highly sensitive health information, the redisclosure of which is protected by Article 27-F of the [facility] Public Health law. If you continue you may have access to information: Regarding HIV / AIDS; Provided by facilities licensed or operated by the [facility] Office of Mental Health; or Provided by the [facility] Office for People With Developmental Disabilities. If such information is present, then the following [facility] mandated warning applies: This information has been disclosed to you from confidential records which are protected by state law. State law prohibits you from making any further disclosure of this information without the specific written consent of the person to whom it pertains, or as otherwise permitted by law. Any unauthorized further disclosure in violation of state law may result in a fine or correction sentence or both. A general authorization for the release of medical or other information is NOT sufficient authorization for further disc losure. Family History Family Member Name Family Member Gender Family Member Status Date o f Status Description Data Source(s) Unknown Unknown Problem MEDENT ([facility]) Grandfather Encounters Encounter Providers Location Date Indications Data Source(s ) ( ESTOB) [facility] Est OB [address] [place] [address] 05/20/2020 12:00:00 AM EST eCW1 ([facility]) ( ESTOB) [facility] [address] [place] [address] 05/13/2020 12:00:00 AM EST eCW1 ([facility]) ( ESTOB) [facility] [address] [place] [address] 05/06/2020 12:00:00 AM EST eCW1 ([facility]) ( ESTOB) [facility] [address] [place] [address] 04/24/2020 12:00:00 AM EST eCW1 ([facility]) ( ESTOB) [facility] [address] [place] [address] 04/07/2020 12:00:00 AM EST eCW1 ([facility]) ( ESTOB) [facility] [address] [facility] [address] [place] [address] 03/23/2020 12:00:00 AM EDT eCW1 ([facility]) ( ESTOB) [facility] [address] [place] [address] 03/06/2020 12:00:00 AM EDT eCW1 ([facility]) ( ESTOB) [facility] Est [facility] [address] [place] [address] 12/17/2019 12:00:00 AM EDT eCW1 ([facility]) [place] [address] [facility] [address] 11/12/2019 12:00:00 AM EDT eCW1 ([facility]) (WC ESTOB) [facility] [address] [place] [address] 11/05/2019 12:00:00 AM EDT eCW1 ([facility]) [facility] [address] [place] [address] 10/31/2019 12:00:00 AM EDT eCW1 ([facility]) [facility] [address] [place] [address] 10/02/2019 12:00:00 AM EDT eCW1 ([facility]) Immunizations Vaccine Date Status Description Data Source(s) Tdap 03/23/2020 04:13:00 PM EDT completed e CW1 ([facility]) Tdap 03/23/2020 04:13:00 PM EDT completed e CW1 ([facility]) Tdap 03/23/2020 04:13:00 PM EDT completed e CW1 ([facility]) Tdap 03/23/2020 04:13:00 PM EDT completed e CW1 ([facility]) Tdap 03/23/2020 04:13:00 PM EDT completed e CW1 ([facility]) Tdap 03/23/2020 04:13:00 PM EDT completed e CW1 ([facility]) New in 2011. IIV4 03/06/2020 11:29:00 AM EDT completed eCW1 ([facility]) New in 2011. IIV4 03/06/2020 11:29:00 AM EDT completed eCW1 ([facility]) New in 2011. IIV4 03/06/2020 11:29:00 AM EDT completed eCW1 ([facility]) New in 2011. IIV4 03/06/2020 11:29:00 AM EDT completed eCW1 ([facility]) New in 2011. IIV4 03/06/2020 11:29:00 AM EDT completed eCW1 ([facility]) New in 2011. IIV4 03/06/2020 11:29:00 AM EDT completed eCW1 ([facility]) New in 2011. IIV4 03/06/2020 11:29:00 AM EDT completed eCW1 ([facility]) New in 2011. IIV4 03/06/2020 11:29:00 AM EDT completed eCW1 ([facility]) Insurance Providers Payer name Policy type / Coverage type Policy ID Covered democrat ID Covered democrat's relationship to mccarthy Policy Mccarthy Plan Information [facility] [id number] SP [id number] [facility] O [id number] S [id number] [employer] [place]/307 [id number] SP [id number] [facility] [id number] SP [id number] SELF PAY SP [employer]-BS PPO [id number] SP [id number] [employer] [place] PPO 302/307 [id number] SP [id number] SELF PAY ONLY [id number] SP [id number] [employer] B [id number] O [id number] [employer] B [id number] S [id number] [employer] [id number] Self YN [id number] [employer] [id number] Self YN [id number] [employer] [id number] Self YN [id number] Problems, Conditions, and Diagnoses Code Display Name Description Problem Type Effective Dates Data Source(s) I10 Elevated blood pressure Elevated blood pressure Proble m 05/20/2020 12:00:00 AM EST eCW1 ([facility]) F17.200 [id number] Nicotine addiction Problem 03/23/2020 12:00: 00 AM EDT eCW1 ([facility]) O99.213 [id number] Obesity complicating in third t rimester Problem 03/05/2020 12:00:00 AM EDT eCW1 ([facility]) O99.212 Maternal obesity complicatin g , childbirth and the puerperium, antepartum Obesity complicating in second trimester Problem 12/17/2019 12:00:00 AM EDT eCW1 ([facility]) Z3A.11 [id number] 11 weeks gestation of Problem 11/04/2019 12:00:00 AM EDT eCW1 ([facility]) O99.211 Obesity complicating , first tr imester Obesity complicating in first trimester Problem 10/02/2019 12:00:00 AM EDT eCW1 ([facility]) O99.211 Obesity complicating , first tr imester Obesity complicating in first trimester Problem 10/02/2019 12:00:00 AM EDT eCW1 ([facility]) Z34.80 care Supervision of other normal P roblem 2019 12:00:00 AM EDT eCW1 ([facility]) Z34.80 care Supervision of other normal P roblem 2019 12:00:00 AM EDT eCW1 ([facility]) Surgeries/Procedures Procedure Description Date Indications Data Source(s) Immunization: Boostrix 0.5mL IM (TDAP) 03/23/2020 12:0 0:00 AM EDT eCW1 ([facility]) INFLUENZA VIRUS VACC SPLIT PRSRV FREE 3 YRS/> IM 03/06 12:00:00 AM EDT eCW1 ([facility]) INITIAL CARE VISIT 10/02/2019 12:00:00 AM EDT eCW1 ([facility]) US UTERUS 14 WK TRANSABDL GESTAT 2019 12:00:00 AM EDT eCW1 ([facility]) Results ID Date Data Source [id number] 06/13/2020 08:24:00 AM EST [facility] Name Value Range Interpretation Code Description Data Jazzy rce(s) Supporting Document(s) SARS coronavirus 2 RNA [Presence] in Res piratory specimen by CRISTIN with probe detection NEGATIVE [facility] This lab was ordered by [facility] a nd reported by [facility]. ID Date Data Source GROUP B STREP CULTURE 04/24/2020 12:00:00 AM EST eCW1 ([facility]) Name Value Range Interpretation Code Description Data Jazzy rce(s) Supporting Document(s) GROUP B STREP CULTURE eCW1 ([facility]) ID Date Data Source GLUCOSE CHRISTINA 3 HR GESTATIONAL 04/07/2020 10:47:52 AM EST eCW1 ([facility]) Name Value Range Interpretation Code Description Data Jazzy rce(s) Supporting Document(s) 93 GLUCOSE, FASTING eCW1 ([facility]) 157 1 HR GLUCOSE eCW1 ([facility]) 166 2 HR GLUCOSE eCW1 ([facility]) 124 3 HR GLUCOSE. eCW1 ([facility]) Procedure Social History Code Duration Value Status Description Data Source(s ) Smoking 05/19/2020 12:00:00 AM EST Former Smoker completed Former Smoker eCW1 ([facility]) Smoking 05/19/2020 12:00:00 AM EST Former Smoker completed Former Smoker eCW1 ([facility]) Smoking 05/08/2020 12:00:00 AM EST Former Smoker completed Former Smoker eCW1 ([facility]) Smoking 05/05/2020 12:00:00 AM EST Former Smoker completed Former Smoker eCW1 ([facility]) Smoking 04/22/2020 12:00:00 AM EST Former Smoker completed Former Smoker eCW1 ([facility]) Smoking 04/02/2020 12:00:00 AM EDT Former Smoker completed Former Smoker eCW1 ([facility]) Smoking 04/02/2020 12:00:00 AM EDT Former Smoker completed Former Smoker eCW1 ([facility]) Smoking 03/23/2020 12:00:00 AM EDT Former Smoker completed Former Smoker eCW1 ([facility]) Smoking 11/05/2019 12:00:00 AM EDT Former Smoker completed Former Smoker eCW1 ([facility]) Smoking 11/05/2019 12:00:00 AM EDT Former Smoker completed Former Smoker eCW1 ([facility]) Vital Signs ID Date Data Source UNK Name Value Range Interpretation Code Description Data Source(s) Diastolic blood pressure 92 mm[Hg] 92 mm[Hg] eCW1 ([facility]) Systolic blood pressure 154 mm[Hg] 154 mm[Hg] e CW1 ([facility]) Body mass index (BMI) [Ratio] 38.117 kg/m2 38.1 17 kg/m2 W1 ([facility]) Body height 62 [in_i] 62 [in_i] eCW1 ([facility]) Body weight 208.4 [lb_av] 208.4 [lb_av] eCW1 ([facility]) Diastolic blood pressure 80 mm[Hg] 80 mm[Hg] eCW1 ([facility]) Systolic blood pressure 132 mm[Hg] 132 mm[Hg] e CW1 ([facility]) Body mass index (BMI) [Ratio] 39.69 kg/m2 39.69 kg/m2 W1 ([facility]) Body height 62 [in_i] 62 [in_i] eCW1 ([facility]) Body weight 217 [lb_av] 217 [lb_av] eCW1 ([facility]) Diastolic blood pressure 78 mm[Hg] 78 mm[Hg] eCW1 ([facility]) Systolic blood pressure 128 mm[Hg] 128 mm[Hg] e CW1 ([facility]) Body mass index (BMI) [Ratio] 39.69 kg/m2 39.69 kg/m2 eCW1 ([facility]) Body height 62 [in_i] 62 [in_i] eCW1 ([facility]) Body weight 217 [lb_av] 217 [lb_av] eCW1 ([facility]) Diastolic blood pressure 80 mm[Hg] 80 mm[Hg] eCW1 ([facility]) Systolic blood pressure 128 mm[Hg] 128 mm[Hg] e CW1 ([facility]) Body mass index (BMI) [Ratio] 38.41 kg/m2 38.41 kg/m2 eCW1 ([facility]) Body height 62 [in_i] 62 [in_i] eCW1 ([facility]) Body weight 210 [lb_av] 210 [lb_av] eCW1 ([facility]) Diastolic blood pressure 82 mm[Hg] 82 mm[Hg] eCW1 ([facility]) Systolic blood pressure 130 mm[Hg] 130 mm[Hg] e CW1 ([facility]) Body mass index (BMI) [Ratio] 38.629 kg/m2 38.6 29 kg/m2 eCW1 ([facility]) Body height 62 [in_i] 62 [in_i] eCW1 ([facility]) Body weight 95.8 kg 95.8 kg eCW1 ([facility]) Body weight 211.2 [lb_av] 211.2 [lb_av] eCW1 ([facility]) Diastolic blood pressure 78 mm[Hg] 78 mm[Hg] eCW1 ([facility]) Systolic blood pressure 130 mm[Hg] 130 mm[Hg] e CW1 ([facility]) Body mass index (BMI) [Ratio] 39.324 kg/m2 39.3 24 kg/m2 eCW1 ([facility]) Body height 62 [in_i] 62 [in_i] eCW1 ([facility]) Body weight 215 [lb_av] 215 [lb_av] eCW1 ([facility]) Diastolic blood pressure 82 mm[Hg] 82 mm[Hg] eCW1 ([facility]) Systolic blood pressure 120 mm[Hg] 120 mm[Hg] e CW1 ([facility]) Body mass index (BMI) [Ratio] 39.251 kg/m2 39.2 51 kg/m2 eCW1 ([facility]) Body height 62 [in_i] 62 [in_i] eCW1 ([facility]) Body weight 214.6 [lb_av] 214.6 [lb_av] eCW1 ([facility]) Diastolic blood pressure 82 mm[Hg] 82 mm[Hg] eCW1 ([facility]) Systolic blood pressure 138 mm[Hg] 138 mm[Hg] e CW1 ([facility]) Body mass index (BMI) [Ratio] 38.227 kg/m2 38.2 27 kg/m2 eCW1 ([facility]) Body height 62 [in_i] 62 [in_i] eCW1 ([facility]) Body weight 209 [lb_av] 209 [lb_av] eCW1 ([facility]) Diastolic blood pressure 80 mm[Hg] 80 mm[Hg] eCW1 ([facility]) Systolic blood pressure 136 mm[Hg] 136 mm[Hg] e CW1 ([facility]) Body mass index (BMI) [Ratio] 37.495 kg/m2 37.4 95 kg/m2 eCW1 ([facility]) Body height 62 [in_i] 62 [in_i] eCW1 ([facility]) Body weight 205 [lb_av] 205 [lb_av] eCW1 ([facility]) Diastolic blood pressure 76 mm[Hg] 76 mm[Hg] eCW1 ([facility]) Systolic blood pressure 132 mm[Hg] 132 mm[Hg] e CW1 ([facility]) Body mass index (BMI) [Ratio] 38.592 kg/m2 38.5 92 kg/m2 eCW1 ([facility]) Body height 62 [in_us] 62 [in_us] eCW1 ([facility]) Body weight Measured 211 [lb_av] 211 [lb_av] eC W1 ([facility])
[2020-07-23 09:36] LABS: BASO % 0.2 % (0.0-1.0); EOS % 0.2 % (0.0-3.0); HEMATOCRIT 45.7 % (36.0-47.0); HEMOGLOBIN 14.1 g/dl (12.0-15.5); LYMPH % 4.7 % (24.0-44.0); MEAN CORPUSCULAR HEMOGLOBIN 25.5 pg (27.0-33.0); MEAN CORPUSCULAR HGB CONC 30.9 g/dl (32.0-36.5); MEAN CORPUSCULAR VOLUME 82.6 fl (80.0-96.0); MONO # 1.3 10^3/uL (0.0-0.8); MONO % 6.4 % (2.0-8.0); NEUTROPHILS # 17.8 10^3/uL (1.5-8.5); NEUTROPHILS % 87.9 % (36.0-66.0); PLATELET COUNT, AUTOMATED 394 10^3/uL (150-450); RED BLOOD COUNT 5.53 10^6/uL (4.00-5.40); WHITE BLOOD COUNT 20.3 10^3/uL (4.0-10.0)
--- NOTE | 2020-07-23 10:21 | REP ---
INDICATION: ruq pain COMPARISON: 06/13/2020 TECHNIQUE: Real time newman scale ultrasound examination using curved array transducer. FINDINGS: Liver is normal in contour, size, and echogenicity without focal hepatic lesions identified. Incidental subcentimeter cyst in the right lobe again noted. Pancreas is incompletely evaluated due to interposed bowel gas. The gallbladder demonstrates small mobile gallstones without wall thickening or pericholecystic fluid. No biliary ductal dilatation is appreciated and the common bile duct measures 4.4 mm diameter. Right kidney is normal in reniform shape without hydronephrosis and measures 9.3 x 4.7 x 3.5 cm. No ascites in the visualized right upper quadrant. IMPRESSION: Cholelithiasis without sonographic evidence for acute cholecystitis. <Electronically signed by Chris Bejarano > 07/23/20 1017
[2020-07-23] MEDS ORDERED: PIPERACILLIN/TAZOBACTAM SOD 3.375 GM in D5W MINI-BAG PLUS 50 ML IV ONE (10:45)
[2020-07-23 11:06] LABS: ALBUMIN 3.7 GM/DL (3.2-5.2); BILIRUBIN,DIRECT 0.9 MG/DL (0.0-0.2); BILIRUBIN,TOTAL 1.3 MG/DL (0.2-1.0); TOTAL PROTEIN 6.9 GM/DL (6.4-8.2)
[2020-07-23] MEDS ORDERED: PANTOPRAZOLE 40MG VIAL (C9113 PER 1) IV ONE (11:30)
[2020-07-23] MEDS ORDERED: ONDANSETRON 4MG/2ML VIAL As Ordered ONE (14:06)
[2020-07-23] MEDS ORDERED: ONDANSETRON 4MG/2ML VIAL IV ONE (14:15)
--- NOTE | 2020-07-23 14:44 | REP ---
INDICATION: pancreatitis, cholelithiasis. COMPARISON: Comparison is made with today's right upper quadrant ultrasound.. TECHNIQUE: Axial and coronal T2 weighted scans are acquired. MRCP is acquired and maximum density projection images are generated along with source images. FINDINGS: Numerous small gallstones are seen as filling defects in the gallbladder. There is a minimal pattern of pericholecystic fluid and a small quantity of perihepatic fluid is seen. There is a 8 mm cyst in the right lobe of the liver. No focal splenic lesion is seen. The liver is otherwise unremarkable. There is significant pancreatic and peripancreatic edema. Edema extends through the small bowel mesenteric root and there is pericolic gutter fluid bilaterally. No cystic lesion is seen in the pancreas. No pancreatic ductal dilation is seen. No intrahepatic or extrahepatic bile duct dilation is observed. There is no MRCP evidence to suggest choledocholithiasis. IMPRESSION: 1. Cholelithiasis. 2. Edema pattern consistent with acute pancreatitis without pancreatic cyst. 3. No biliary or pancreatic ductal dilation. No MRCP evidence of choledocholithiasis. <Electronically signed by Rick Herrera > 07/23/20 [id number]
[2020-07-23] MEDS ORDERED: METOCLOPRAMIDE INJ 10MG/2ML VIAL (J2765 PER 1) IV ONE (15:00)
[2020-07-23] MEDS ORDERED: ACETAMINOPHEN TAB 650MG DOSE (2X325MG) PO PRN (17:00)
[2020-07-23] MEDS ORDERED: MORPHINE 2 MG/ML 1ML VIAL (J2270) IV PRN (17:00)
[2020-07-23] MEDS ORDERED: MAALOX 30 ML SUSP *UDC PO PRN (17:00)
[2020-07-23] MEDS ORDERED: MOM 30ML SUSPENSION UDC PO PRN (17:00)
--- OUTSIDE RECORDS SUMMARY | 2020-07-23 17:04 | CCD ---
Author Author [facility] Organization [facility] Address Unknown Phone Unavailable Support Name Relationship Address Phone EDISON CORTES Next Of Kin [phone] [place] [address] UE Next Of Kin Unknown Unavailable [facility] Next Of Kin [phone] [place] [address] EDISON TODD Next Of Kin [phone] [place] [address] EDISON CORTES [facility] [address] [place] [address] Unavailable Re-disclosure Warning The records that you [...] is protected by Article 27-F of the [facility] Public Health law. If you continue you may have access to information: Regarding HIV / AIDS; Provided by facilities licensed or operated by the [facility] Office of Mental Health; or Provided by the [facility] Office for People With Developmental Disabilities. If such information is present, then the following [facility] mandated warning applies: This information has been [...] law may result in a fine or fpc sentence or both. A general authorization for the release of medical or other information is NOT sufficient authorization for further disc losure. Family History Family Member Name Family Member Gender Family Member Status Date o f Status Description Data Source(s) Unknown Unknown Problem MEDENT ([facility]) Grandfather Encounters Encounter Providers Location Date Indications Data Source(s ) ( ESTOB) [facility] [address] [place] [address] 05/20/2020 12:00:00 AM EST eCW1 ([facility]) ( ESTOB) [facility] [address] [place] [address] 05/13/2020 12:00:00 AM EST eCW1 ([facility]) ( ESTOB) [facility] [address] [place] [address] 05/06/2020 12:00:00 AM EST eCW1 ([facility]) ( ESTOB) [facility] [address] [place] [address] 04/24/2020 12:00:00 AM EST eCW1 ([facility]) ( ESTOB) [facility] [address] [place] [address] 04/07/2020 12:00:00 AM EST eCW1 ([facility]) ( ESTOB) [facility] [address] [place] [address] 03/23/2020 12:00:00 AM EDT eCW1 ([facility]) ( ESTOB) [facility] [address] [place] [address] 03/06/2020 12:00:00 AM EDT eCW1 ([facility]) ( ESTOB) [facility] [address] [place] [address] 12/17/2019 12:00:00 AM EDT eCW1 ([facility]) Unknown [address] [facility] [address] 11/12/2019 12:00:00 AM EDT eCW1 ([facility]) (WC ESTOB) [facility] [address] [place] [address] 11/05/2019 12:00:00 AM EDT eCW1 ([facility]) [facility] [address] [place] [address] 10/31/2019 12:00:00 AM EDT eCW1 ([facility]) [facility] [address] [place] [address] 10/02/2019 12:00:00 AM EDT eCW1 ([facility]) Immunizations Vaccine Date Status Description Data Source(s) Tdap 03/23/2020 04:13:00 PM EDT completed e CW1 ([facility]) Tdap 03/23/2020 04:13:00 PM EDT completed e CW1 ([facility]) Tdap 03/23/2020 04:13:00 PM EDT completed e CW1 ([facility]) Tdap 03/23/2020 04:13:00 PM EDT completed e CW1 ([facility]) Tdap 03/23/2020 04:13:00 PM EDT completed e CW1 ([facility]) Tdap 03/23/2020 04:13:00 PM EDT completed e CW1 ([facility]) New in 2011. IIV4 03/06/2020 11:29:00 AM EDT completed eCW1 ([facility]) New in 2011. IIV4 03/06/2020 11:29:00 AM EDT completed eCW1 ([facility]) New in 2011. IIV4 03/06/2020 11:29:00 AM EDT completed eCW1 ([facility]) New in 2011. IIV4 03/06/2020 11:29:00 AM EDT completed eCW1 ([facility]) New in 2011. IIV4 03/06/2020 11:29:00 AM EDT completed eCW1 ([facility]) New in 2011. IIV4 03/06/2020 11:29:00 AM EDT completed eCW1 ([facility]) New in 2011. IIV4 03/06/2020 11:29:00 AM EDT completed eCW1 ([facility]) New in 2011. IIV4 03/06/2020 11:29:00 AM EDT completed eCW1 ([facility]) Insurance Providers Payer name Policy type / Coverage type Policy ID Covered democrat ID Covered democrat's relationship to mccartyh Policy Mccarthy Plan Information SELF PAY ONLY [id number] SP [id number] [facility] [id number] SP [id number] [facility] [id number] S [id number] [place] P[place]/307 [id number] SP [id number] TANJA [id number] SP [id number] SELF PAY SP EXCELLUS BC-BS PPO [id number] SP [id number] [place] PPO 302/307 [id number] SP [id number] [employer] B [id number] O [id number] [employer] B [id number] S [id number] BC[employer] [id number] Self YN [id number] [employer] [id number] Self YN [id number] [employer] [id number] Self YN [id number] Problems, Conditions, and Diagnoses Code Display Name Description Problem Type Effective Dates Data Source(s) I10 Elevated blood pressure Elevated blood pressure Proble m 05/20/2020 12:00:00 AM EST eCW1 ([facility]) F17.200 [id number] Nicotine addiction Problem 03/23/2020 12:00: 00 AM EDT eCW1 ([facility]) O99.213 [id number] Obesity complicating in third t rimester Problem 03/05/2020 12:00:00 AM EDT eCW1 ([facility]) O99.212 Maternal obesity complicatin g , childbirth and the puerperium, antepartum Obesity complicating in second trimester Problem 12/17/2019 12:00:00 AM EDT eCW1 ([facility]) Z3A.11 [id number] 11 weeks gestation of Problem 11/04/2019 12:00:00 AM EDT eCW1 ([facility]) O99.211 Obesity complicating , first tr imester Obesity complicating in first trimester Problem 10/02/2019 12:00:00 AM EDT eCW1 ([facility]) O99.211 Obesity complicating , first tr imester Obesity complicating in first trimester Problem 10/02/2019 12:00:00 AM EDT eCW1 ([facility]) Z34.80 care Supervision of other normal P roblem 2019 12:00:00 AM EDT eCW1 ([facility]) Z34.80 care Supervision of other normal P roblem 2019 12:00:00 AM EDT eCW1 ([facility]) Surgeries/Procedures Procedure Description Date Indications Data Source(s) Immunization: Boostrix 0.5mL IM (TDAP) 03/23/2020 12:0 0:00 AM EDT eCW1 ([facility]) INFLUENZA VIRUS VACC SPLIT PRSRV FREE 3 YRS/> IM 03/06 12:00:00 AM EDT eCW1 ([facility]) INITIAL CARE VISIT 10/02/2019 12:00:00 AM EDT eCW1 ([facility]) US UTERUS 14 WK TRANSABDL GESTAT 2019 12:00:00 AM EDT eCW1 ([facility]) Results ID Date Data Source [id number] 06/13/2020 08:24:00 AM EST [facility] Name Value Range Interpretation Code Description Data Jazzy rce(s) Supporting Document(s) SARS coronavirus 2 RNA [Presence] in Res piratory specimen by CRISTIN with probe detection NEGATIVE [facility] This lab was ordered by [facility] a nd reported by [facility]. ID Date Data Source GROUP B STREP CULTURE 04/24/2020 12:00:00 AM EST eCW1 ([facility]) Name Value Range Interpretation Code Description Data Jazzy rce(s) Supporting Document(s) GROUP B STREP CULTURE eCW1 ([facility]) ID Date Data Source GLUCOSE CHRISTINA 3 HR GESTATIONAL 04/07/2020 10:47:52 AM EST eCW1 ([facility]) Name Value Range Interpretation Code Description Data Jazzy rce(s) Supporting Document(s) 93 GLUCOSE, FASTING eCW1 ([facility]) 157 1 HR GLUCOSE eCW1 ([facility]) 166 2 HR GLUCOSE eCW1 ([facility]) 124 3 HR GLUCOSE. eCW1 ([facility]) Procedure Social History Code Duration Value Status Description Data Source(s ) Smoking 05/19/2020 12:00:00 AM EST Former Smoker completed Former Smoker eCW1 ([facility]) Smoking 05/19/2020 12:00:00 AM EST Former Smoker completed Former Smoker eCW1 ([facility]) Smoking 05/08/2020 12:00:00 AM EST Former Smoker completed Former Smoker eCW1 ([facility]) Smoking 05/05/2020 12:00:00 AM EST Former Smoker completed Former Smoker eCW1 ([facility]) Smoking 04/22/2020 12:00:00 AM EST Former Smoker completed Former Smoker eCW1 ([facility]) Smoking 04/02/2020 12:00:00 AM EDT Former Smoker completed Former Smoker eCW1 ([facility]) Smoking 04/02/2020 12:00:00 AM EDT Former Smoker completed Former Smoker eCW1 ([facility]) Smoking 03/23/2020 12:00:00 AM EDT Former Smoker completed Former Smoker eCW1 ([facility]) Smoking 11/05/2019 12:00:00 AM EDT Former Smoker completed Former Smoker eCW1 ([facility]) Smoking 11/05/2019 12:00:00 AM EDT Former Smoker completed Former Smoker eCW1 ([facility]) Vital Signs ID Date Data Source UNK Name Value Range Interpretation Code Description Data Source(s) Diastolic blood pressure 92 mm[Hg] 92 mm[Hg] eCW1 ([facility]) Systolic blood pressure 154 mm[Hg] 154 mm[Hg] e CW1 ([facility]) Body mass index (BMI) [Ratio] 38.117 kg/m2 38.1 17 kg/m2 W1 ([facility]) Body height 62 [in_i] 62 [in_i] eCW1 ([facility]) Body weight 208.4 [lb_av] 208.4 [lb_av] eCW1 ([facility]) Diastolic blood pressure 80 mm[Hg] 80 mm[Hg] eCW1 ([facility]) Systolic blood pressure 132 mm[Hg] 132 mm[Hg] e CW1 ([facility]) Body mass index (BMI) [Ratio] 39.69 kg/m2 39.69 kg/m2 W1 ([facility]) Body height 62 [in_i] 62 [in_i] eCW1 ([facility]) Body weight 217 [lb_av] 217 [lb_av] eCW1 ([facility]) Diastolic blood pressure 78 mm[Hg] 78 mm[Hg] eCW1 ([facility]) Systolic blood pressure 128 mm[Hg] 128 mm[Hg] e CW1 ([facility]) Body mass index (BMI) [Ratio] 39.69 kg/m2 39.69 kg/m2 eCW1 ([facility]) Body height 62 [in_i] 62 [in_i] eCW1 ([facility]) Body weight 217 [lb_av] 217 [lb_av] eCW1 ([facility]) Diastolic blood pressure 80 mm[Hg] 80 mm[Hg] eCW1 ([facility]) Systolic blood pressure 128 mm[Hg] 128 mm[Hg] e CW1 ([facility]) Body mass index (BMI) [Ratio] 38.41 kg/m2 38.41 kg/m2 eCW1 ([facility]) Body height 62 [in_i] 62 [in_i] eCW1 ([facility]) Body weight 210 [lb_av] 210 [lb_av] eCW1 ([facility]) Diastolic blood pressure 82 mm[Hg] 82 mm[Hg] eCW1 ([facility]) Systolic blood pressure 130 mm[Hg] 130 mm[Hg] e CW1 ([facility]) Body mass index (BMI) [Ratio] 38.629 kg/m2 38.6 29 kg/m2 eCW1 ([facility]) Body height 62 [in_i] 62 [in_i] eCW1 ([facility]) Body weight 95.8 kg 95.8 kg eCW1 ([facility]) Body weight 211.2 [lb_av] 211.2 [lb_av] eCW1 ([facility]) Diastolic blood pressure 78 mm[Hg] 78 mm[Hg] eCW1 ([facility]) Systolic blood pressure 130 mm[Hg] 130 mm[Hg] e CW1 ([facility]) Body mass index (BMI) [Ratio] 39.324 kg/m2 39.3 24 kg/m2 eCW1 ([facility]) Body height 62 [in_i] 62 [in_i] eCW1 ([facility]) Body weight 215 [lb_av] 215 [lb_av] eCW1 ([facility]) Diastolic blood pressure 82 mm[Hg] 82 mm[Hg] eCW1 ([facility]) Systolic blood pressure 120 mm[Hg] 120 mm[Hg] e CW1 ([facility]) Body mass index (BMI) [Ratio] 39.251 kg/m2 39.2 51 kg/m2 eCW1 ([facility]) Body height 62 [in_i] 62 [in_i] eCW1 ([facility]) Body weight 214.6 [lb_av] 214.6 [lb_av] eCW1 ([facility]) Diastolic blood pressure 82 mm[Hg] 82 mm[Hg] eCW1 ([facility]) Systolic blood pressure 138 mm[Hg] 138 mm[Hg] e CW1 ([facility]) Body mass index (BMI) [Ratio] 38.227 kg/m2 38.2 27 kg/m2 eCW1 ([facility]) Body height 62 [in_i] 62 [in_i] eCW1 ([facility]) Body weight 209 [lb_av] 209 [lb_av] eCW1 ([facility]) Diastolic blood pressure 80 mm[Hg] 80 mm[Hg] eCW1 ([facility]) Systolic blood pressure 136 mm[Hg] 136 mm[Hg] e CW1 ([facility]) Body mass index (BMI) [Ratio] 37.495 kg/m2 37.4 95 kg/m2 eCW1 ([facility]) Body height 62 [in_i] 62 [in_i] eCW1 ([facility]) Body weight 205 [lb_av] 205 [lb_av] eCW1 ([facility]) Diastolic blood pressure 76 mm[Hg] 76 mm[Hg] eCW1 ([facility]) Systolic blood pressure 132 mm[Hg] 132 mm[Hg] e CW1 ([facility]) Body mass index (BMI) [Ratio] 38.592 kg/m2 38.5 92 kg/m2 eCW1 ([facility]) Body height 62 [in_us] 62 [in_us] eCW1 ([facility]) Body weight Measured 211 [lb_av] 211 [lb_av] eC W1 ([facility])
[2020-07-23] MEDS: NS 1,000 ML IV SCH (19:45)
--- NOTE | 2020-07-23 19:47 | HPEPDOC ---
General Date of Admission Jul 23, 2020 at 16:48 Date of Service: Jul 23, 2020 Primary Care Physician: OSCAR BROOKS PA-C. Attending Physician: ELMER RECIO MD Chief Complaint The patient is a 24-year-old female admitted with a reason for visit of Acute Pancreatitis. Source: Patient Exam Limitations: No limitations Severity: Moderate Associated Symptoms: Chills, Nausea, Vomiting History of Present Illness Patient is a 24 y.o. F with a past medical history of cholelithiasis and gallstone pancreatitis who presents due to RUQ and epigastric abdominal pain onset 2 AM today. Patient reports waking up from sleep due to abdominal pain. She states that she had a high-fat meal last night. Abdominal pain currently rated as 6/10. Patient reports taking Tylenol for pain but vomited soon after taking it. She states that laying on her side improves her pain minimally. Admits to nausea, vomiting, and chills. She states that she had a few episodes of hematemesis after she had been vomiting "for a while". She has never had hematemesis in the past. She has not had any hematemesis since this morning. Denies melena, fever, SOB, light headedness, or dizziness. Patient states that she is tolerating ice chips without any nausea or vomiting in the ED. Home Medications Scheduled PRN Acetaminophen (Acetaminophen) 500 Mg Tablet, 1,000 MG PO Q6H PRN for PAIN / FEVER, (Reported) Allergies Coded Allergies: Common Ragweed (Verified Allergy, Mild, 02/27/20) Past Medical History Medical History Gestational HTN Gallstone pancreatitis Acute pancreatitis Social History * Smoker: current smoker A-FIB/CHADSVASC A-FIB History Current/History of A-Fib/PAF?: No Review of Systems Constitutional: Reports: Chills; Denies: Fever Pulmonary: Denies: Dyspnea, Cough Cardiovascular: Denies: Chest Pain, Lt Headedness Gastrointestinal: Reports: Nausea, Vomiting, Abdominal Pain (Epigastric and RUQ); Denies: Diarrhea, Constipation, Melena, Hematochezia Physical Examination General Exam: Positive: Alert, Cooperative Eye Exam: Positive: PERRLA, Conjunctiva & lids normal, EOMI ENT Exam: Positive: Atraumatic Chest Exam: Positive: Clear to auscultation, Normal air movement Heart Exam: Positive: Rate Normal, Regular Rhythm Abdomen Exam: Positive: Normal bowel sounds, Soft, Tenderness (Diffuse abdominal tenderness but worse in epigastric and RUQ ) Vital Signs Vital Signs Date Time Temp Pulse Resp B/P (MAP) Pulse Ox O2 Delivery O2 Flow Rate FiO2 07/23/20 14:58 16 98 Room Air 07/23/20 14:52 97.7 60 138/91 (107) Laboratory Data Labs 24H Laboratory Tests 2 07/23/20 09:25: Immature Granulocyte % (Auto) 0.6, Neutrophils (%) (Auto) 87.9H, Lymphocytes (%) (Auto) 4.7L, Monocytes (%) (Auto) 6.4, Eosinophils (%) (Auto) 0.2, Basophils (%) (Auto) 0.2, Neutrophils # (Auto) 17.8H, Lymphocytes # (Auto) 1.0L, Monocytes # (Auto) 1.3H, Eosinophils # (Auto) 0.0, Basophils # (Auto) 0.0, Nucleated Red Blood Cells % (auto) 0.0, Total Bilirubin 1.3H, Direct Bilirubin 0.9H, Aspartate Amino Transf (AST/SGOT) 577H, Alanine Aminotransferase (ALT/SGPT) 390H, Alkaline Phosphatase 164H, Total Protein 6.9, Albumin 3.7, Albumin/Globulin Ratio 1.2, Lipase [id number] 07/23/20 09:28: POC Glucose (Misc Panel) 107H, POC Sodium (Misc Panel) 140, POC Potassium (Misc Panel) 4.9, POC Chloride (Misc Panel) 106, POC Total CO2 (Misc Panel) 27.0, POC Blood Urea Nitrogen (Misc Panel 9, POC Ionized Calcium (Misc Panel) 5.0, POC Creatinine (Misc Panel) 0.9, POC Hematocrit (Misc Panel) 45.0 07/23/20 09:30: POC Beta HCG, Quantitative < 5.0 CBC/BMP Laboratory Tests 07/23/20 09:25 Microbiology Microbiology 07/23/20 Respiratory Virus Panel (PCR) ([facility]) - Final, Complete Assessment/Plan # Pancreatitis 07/07 cholelithiasis - Gallbladder US shows cholelithiasis without evidence for acute cholecystitis. - Abdominal MRI shows cholelithiasis and edema pattern consistent with acute pancreatitis. - WBC elevated at 20.3, AST elevated at 577, ALT elevated at 390, lipase elevated at 30,268. - Repeat lipase ordered for tomorrow morning. - Amylase, lactic acid, CBC, CMP, and Mg level ordered. - Patient will be kept on a clear liquid diet. - Acetaminophen 650 mg PO Q4H PRN and morphine 2mg IV Q4H PRN for pain control. - Will hold off surgery consult unless patient becomes hypotensive or septic. # Hematemesis - Most likely due to her recurrent episodes of vomiting causing a tear. - Patient is currently hemodynamically stable. - Will continue to monitor if hematemesis worsens or CBC values worsen. DVT Prophylaxis: Lovenox 40 mg SC daily. Plan / VTE VTE Prophylaxis Ordered?: Yes (SCVDs ordered.) GME ATTESTATION My faculty preceptor for this patient encounter was physically present during the encounter and was fully available. All aspects of the patient interview, examination, medical decision making process, and medical care plan development were reviewed and approved by the faculty preceptor. The faculty preceptor is aware and concurs with the plan as stated in the body of this note and will attest to such by his/her cosignature. ATTENDING NOTE I, Elmer Recio MD, have independently examined this patient and per formed my own physical exam, as well as reviewed the documentation and edited where necessary. I have discussed in detail with the resident / student the findings and plan of treatment as documented by the resident / student and edited their note. I agree with their findings and treatment plan and have edited their documentation. I will continue to follow the patient during this hospital stay. With regard to hematemesis, I discussed this with Dr. Foley, who recommends monitoring hemoglobin. If patient's hematemesis recurs, will have patient perform upper endoscopy. However, if no further episodes of hematemesis can follow-up outpatient. Ultimately the plan for gallstone pancreatitis, this to allow the patient to pass the perform elective cholecystectomy as outpatient. Rest per resident note. Francisco Davies DO Jul 23, 2020 17:37 Danette BASS OMS-3 Jul 23, 2020 19:00 ELMER RECIO MD Jul 23, 2020 19:58
[2020-07-23 20:02] VITALS: BP 110/78
[2020-07-23] MEDS: DOCUSATE SODIUM 100MG CAPSULE PO SCH (20:07)
[2020-07-23] MEDS ORDERED: ONDANSETRON 4MG/2ML VIAL IV PRN (20:15)
[2020-07-23] MEDS: PERCOCET 5MG/325MG TAB PO PRN (20:50)
[2020-07-23] MEDS ORDERED: PROMETHAZINE INJ 25 MG/ML VIAL (J2550) IV ONE (23:30)
[2020-07-24 00:29] LABS: BLOOD UREA NITROGEN 9 MG/DL (7-18); CALCIUM LEVEL 8.7 MG/DL (8.5-10.1); CARBON DIOXIDE LEVEL 27 MEQ/L (21-32); CHLORIDE LEVEL 108 MEQ/L (98-107); CREATININE FOR GFR 0.86 MG/DL (0.55-1.30); GLOMERULAR FILTRATION RATE > 60.0 (>60); GLUCOSE, FASTING 108 MG/DL (70-100); MAGNESIUM LEVEL 1.5 MG/DL (1.8-2.4); SODIUM LEVEL 141 MEQ/L (136-145)
[2020-07-24] MEDS: NS 1,000 ML IV SCH ×3 (02:08→12:23)
[2020-07-24] MEDS ORDERED: ONDANSETRON 4MG/2ML VIAL IV ONE (02:15)
[2020-07-24] MEDS: PERCOCET 5MG/325MG TAB PO PRN (05:47)
[2020-07-24 06:00] VITALS: BP 130/87
[2020-07-24 06:01] LABS: BASO % 0.1 % (0.0-1.0); HEMATOCRIT 37.7 % (36.0-47.0); LYMPH # 0.8 10^3/uL (1.5-5.0); LYMPH % 5.2 % (24.0-44.0); MEAN CORPUSCULAR HEMOGLOBIN 25.5 pg (27.0-33.0); MEAN CORPUSCULAR HGB CONC 30.8 g/dl (32.0-36.5); MEAN CORPUSCULAR VOLUME 82.9 fl (80.0-96.0); MONO % 6.7 % (2.0-8.0); NEUTROPHILS # 13.1 10^3/uL (1.5-8.5); NEUTROPHILS % 87.6 % (36.0-66.0); PLATELET COUNT, AUTOMATED 344 10^3/uL (150-450); RED BLOOD COUNT 4.55 10^6/uL (4.00-5.40)
[2020-07-24 06:03] LABS: HEMOGLOBIN 11.6 g/dl (12.0-15.5)
[2020-07-24] MEDS ORDERED: MAG SULF 1GM/100ML (MAG RUN) 1 GM in IV 1 EA IV ONE (06:30)
[2020-07-24 06:31] LABS: ALBUMIN 3.2 GM/DL (3.2-5.2); ALT/SGPT 373 U/L (12-78); AMYLASE 391 U/L (25-115); BILIRUBIN,TOTAL 0.8 MG/DL (0.2-1.0); BLOOD UREA NITROGEN 8 MG/DL (7-18); CALCIUM LEVEL 8.4 MG/DL (8.5-10.1); CARBON DIOXIDE LEVEL 27 MEQ/L (21-32); CHLORIDE LEVEL 110 MEQ/L (98-107); CREATININE FOR GFR 0.75 MG/DL (0.55-1.30); GLOMERULAR FILTRATION RATE > 60.0 (>60); GLUCOSE, FASTING 102 MG/DL (70-100); LIPASE 4605 U/L (73-393); MAGNESIUM LEVEL 1.5 MG/DL (1.8-2.4); POTASSIUM SERUM 4.3 MEQ/L (3.5-5.1); SODIUM LEVEL 143 MEQ/L (136-145)
[2020-07-24] MEDS ORDERED: PERCOCET PO (07:31)
[2020-07-24] MEDS: DOCUSATE SODIUM 100MG CAPSULE PO SCH (08:47)
[2020-07-24] MEDS ORDERED: ENOXAPARIN 40MG/0.4ML SYRINGE (J1650 PER 10MG) SC SCH (09:00)
[2020-07-24] MEDS ORDERED: MAGNESIUM OXIDE 400MG TAB (MAG-OX) PO ONE (10:00)
--- NOTE | 2020-07-24 10:17 | IPN ---
PROGRESS NOTE DATE: 07/24/20 SUBJECTIVE: Patient complains of slight discomfort right upper quadrant radiating to the scapula and her back, rated at 4/10. When she is not moving it is improved, worse when she lies down flat on her back. No pain when she walks around. No fever, no chills. She has some nausea without vomiting. She is tolerating her liquid diet, but had trouble with some Lou Rebecca; everything else was okay. Patient is requesting to be discharged today because of her baby at home and her had to take off from work to take care of the baby. PHYSICAL EXAMINATION ON DISCHARGE: Vital signs: Temperature 97.6, pulse 61, respiratory rate 19, blood pressure 130/87, 100% on room air. General: Awake, alert, oriented times 3, answering questions appropriately, speaking full sentences. HEENT: Anicteric, no jaundice, no cyanosis or pallor. Dry mucous membranes. Neck: No JVD, thyromegaly or cervical lymphadenopathy. Lungs: Clear to auscultation, no wheezes, rhonchi or rales. Heart: S1 and S2 sinus rhythm. Abdomen: Soft, tender right upper quadrant/epigastric region, no guarding or rebound, positive bowel sounds, obese abdomen. No hepatosplenomegaly. Extremities: No pitting edema. LABORATORY DATA: White count 15, hemoglobin 11, hematocrit 37, platelet count 344. Sodium 143, potassium 4.3, chloride 110, bicarb 27, BUN 8, creatinine 0.75, glucose 102, magnesium 1.5. Total bilirubin 0.8, AST 189, ALT 373, alkaline phosphatase 154. Respiratory panel negative. Coronavirus negative. IMAGING STUDIES: MRCP 07/23/20: Cholelithiasis, edema pattern consistent with acute pancreatitis without pancreatic cyst, no biliary or pancreatic ductal dilatation, no MRCP evidence of choledocholithiasis. ASSESSMENT: This is a 24-year-old female admitted due to gallstone pancreatitis, was not found to have choledocholithiasis, has had no fever or chills or jaundice. Patient's bilirubin is normal. IMPRESSION/PLAN: Gallstone pancreatitis: Patient was kept n.p.o., on I.V. fluids and advanced to a liquid diet this morning and anxious to go home due to her baby at home with no other caregiver aside from her . Patient is tolerating her diet without any vomiting, but did complain of some nausea and right upper quadrant discomfort. She is adamant about going home today therefore we will try to advance her diet. Since there is no fever, chills and no signs of cholangitis antibiotics will not be continued. Patient has no signs of choledocholithiasis and currently has a normal bilirubin level and clinically has no overt jaundice. Patient may therefore be discharged home if she is comfortable with pain controlled and tolerating her diet with outpatient follow up with Dr. Foley general surgeon for a laparoscopic cholecystectomy. ERNESTINA
[2020-07-24 14:00] VITALS: BP 127/72
--- NOTE | 2020-07-26 14:01 | DS.PDOC ---
Discharge Summary General Date of Admission Jul 23, 2020 at 16:48 Date of Discharge 07/24/20 Discharge Summary DISCHARGE DIAGNOSIS: Gallstone pancreatitis DISCHARGE MEDICATIONS: SEE BELOW. ALLERGIES: SEE BELOW. DISCHARGE INSTRUCTIONS: Follow-up with Gen. surgery for left endoscopic cholecystectomy within 1 week of discharge. Follow-up with primary care physician within 5 days, do not breast-feed well you are takingPain medications HOSPITAL COURSE: This is a 24-year-old female admitted due to gallstone pancreatitis, was not found to have choledocholithiasis, has had no fever or chills or jaundice. Patient's bilirubin is normal. Gallstone pancreatitis: Patient was kept n.p.o., on I.V. fluids and advanced to a liquid diet this morning and anxious to go home due to her baby at home with no other caregiver aside from her . Patient is tolerating her diet without any vomiting, but did complain of some nausea and right upper quadrant discomfort. She is adamant about going home today therefore we will try to advance her diet. Since there is no fever, chills and no signs of cholangitis antibiotics will not be continued. Patient has no signs of choledocholithiasis and currently has a normal bilirubin level and clinically has no overt jaundice. Patient may therefore be discharged home if she is comfortable with pain controlled and tolerating her diet with outpatient follow up with Dr. Foley general surgeon for a laparoscopic cholecystectomy. PHYSICAL EXAMINATION ON DISCHARGE: Vital signs: Temperature 97.6, pulse 61, respiratory rate 19, blood pressure 130/87, 100% on room air. General: Awake, alert, oriented times 3, answering questions appropriately, speaking full sentences. HEENT: Anicteric, no jaundice, no cyanosis or pallor. Dry mucous membranes. Neck: No JVD, thyromegaly or cervical lymphadenopathy. Lungs: Clear to auscultation, no wheezes, rhonchi or rales. Heart: S1 and S2 sinus rhythm. Abdomen: Soft, tender right upper quadrant/epigastric region, no guarding or rebound, positive bowel sounds, obese abdomen. No hepatosplenomegaly. Extremities: No pitting edema. LABORATORY DATA: White count 15, hemoglobin 11, hematocrit 37, platelet count 344. Sodium 143, potassium 4.3, chloride 110, bicarb 27, BUN 8, creatinine 0.75, glucose 102, magnesium 1.5. Total bilirubin 0.8, AST 189, ALT 373, alkaline phosphatase 154. Respiratory panel negative. Coronavirus negative. IMAGING STUDIES: MRCP 07/23/20: Cholelithiasis, edema pattern consistent with acute pancreatitis without pancreatic cyst, no biliary or pancreatic ductal dilatation, no MRCP evidence of choledocholithiasis. Time spent on discharge 30 minutes Vital Signs/I&Os Vital Signs Date Time Temp Pulse Resp B/P (MAP) Pulse Ox O2 Delivery O2 Flow Rate FiO2 07/24/20 14:00 98.0 65 20 127/72 (90) 98 Room Air Microbiology Microbiology 07/23/20 Respiratory Virus Panel (PCR) ([facility]) - Final, Complete Discharge Medications Scheduled PRN Oxycodone/Acetaminophen (Oxycodone-Acetaminophen 5-325) 1 Each Tablet, 1 TAB PO Q4HP PRN for MODERATE PAIN (PS 5-7) Allergies Coded Allergies: Common Ragweed (Verified Allergy, Mild, 02/27/20) AURELIA VALLEJO MD Jul 26, 2020 14:00
== END 2020-07-24 15:58 | disposition home or self-care (01) | DRG 282 ==
LOC: M ED 08:59 → EDBD 08:59 → M ED INP 16:48 → ENRESERV 18:54 → M MS5PR 20:00
PROVIDERS: ADMIT Family Medicine; ATTEND General Practice
DX: K85.10 Biliary acute pancreatitis without necrosis or infection (principal); K92.0 Hematemesis; F17.200 Nicotine dependence, unspecified, uncomplicated; K80.20 Calculus of gallbladder without cholecystitis without obstruction

== ENCOUNTER → 2020-09-01 | Outpatient (CLI) | payer SELFPAY ==
[~2020-09-01] MED LIST changes: +ACET-897 PO; +IBUP200T45 PO; +PERCOCET PO; +PRENMIS3 PO
== END ==
LOC: M LABSMTC 09:56
PROVIDERS: ATTEND Anesthesiology
DX: Z01.812 Encounter for preprocedural laboratory examination (principal)

== ENCOUNTER 2020-09-04 09:20 | Day surgery (SDC) | payer BC, SELFPAY ==
[~2020-09-04] VITALS: Ht 157.5 cm; Wt 81.2 kg
[~2020-09-04 09:20] MED LIST changes: +LR 1,000 ML IV ONE
[2020-09-04] MEDS ORDERED: LIDOCAINE 2% 100MG/5ML SDV (FOR ANES.) As Ordered ONE (09:54)
[2020-09-04] MEDS ORDERED: SUGAMMADEX SODIUM 500 MG/5 ML VIAL (BRIDION) As Ordered ONE (09:54)
[2020-09-04] MEDS ORDERED: propofoL 200 MG/20 ML VIAL As Ordered ONE (09:54)
[2020-09-04] MEDS ORDERED: KETOROLAC 60MG 2ML VIAL As Ordered ONE (09:54)
[2020-09-04] MEDS ORDERED: ONDANSETRON 4MG/2ML VIAL As Ordered ONE (09:54)
[2020-09-04] MEDS ORDERED: MIDAZOLAM INJ 2MG/2ML VIAL (J2250 PER 1MG) As Ordered ONE (09:55)
[2020-09-04] MEDS ORDERED: dexameTHASONE 4 MG/ML 1ML VIAL (J1100 PER 1MG) As Ordered ONE (09:55)
[2020-09-04] MEDS ORDERED: fentaNYL 100 MCG/2 ML INJECTION (J3010) As Ordered ONE (09:55)
[2020-09-04] MEDS ORDERED: ACETAMINOPHEN 1000MG 100ML IV BTL (OFIRMEV) (J0131 PER 10MG) As Ordered ONE (09:55)
[2020-09-04] MEDS ORDERED: ROCURONIUM BROMIDE 50 MG/5 ML VIAL As Ordered ONE (09:55)
[2020-09-04] MEDS ORDERED: LACRILUBE (AKWA TEARS) OPHTH OINT 3.5 GM As Ordered ONE (10:03)
[2020-09-04] MEDS ORDERED: BUPIVACAINE/EPIN 0.25% 30 ML VIAL As Ordered ONE (10:31)
[2020-09-04] MEDS ORDERED: HYDROmorphone HCL 2 MG/ML 1ML VIAL (J1170) As Ordered ONE (11:05)
[2020-09-04] MEDS ORDERED: NORCO, ANEXSIA 5/325MG TABLET (HYDROcodone/ACETAMINOPHEN) PO PRN (12:20)
[2020-09-04] MEDS ORDERED: fentaNYL 100 MCG/2 ML INJECTION (J3010) IV PRN (12:30)
[2020-09-04] MEDS ORDERED: LR 1,000 ML IV SCH (12:30)
[2020-09-04] MEDS ORDERED: PERCOCET 5MG/325MG TAB PO PRN (12:30)
[2020-09-04] MEDS ORDERED: METOCLOPRAMIDE INJ 10MG/2ML VIAL (J2765 PER 1) IV PRN (12:30)
[2020-09-04] MEDS ORDERED: ONDANSETRON 4MG/2ML VIAL IV PRN (12:30)
[2020-09-04 13:45] VITALS: BP 139/83
--- NOTE | 2020-09-04 14:27 | RO ---
OPERATIVE NOTE DATE OF OPERATION: 09/04/2020 PREOPERATIVE DIAGNOSIS: Symptomatic cholelithiasis. POSTOPERATIVE DIAGNOSIS: Symptomatic cholelithiasis. PROCEDURE: Robotic cholecystectomy. SURGEON: Desmond Foley DO GIS ENGINEER: Vibha Kemp ANESTHESIA: General. EBL: 5. COMPLICATIONS: None. INDICATIONS FOR PROCEDURE: The patient is a 24-year-old female who presents with persistent right upper quadrant pain and found to have symptomatic cholelithiasis. Recommendation was to proceed with robotic cholecystectomy. Risks and benefits of the procedure not limited to but including bleeding, infection, hernias, damage to surrounding structures, need for further surgery were discussed in detail with the patient, informed consent was obtained and procedure planned. DESCRIPTION OF PROCEDURE: The patient was brought back to operating room 7. After sufficient sedation the abdomen was sterilely prepped and draped. Time out was done to confirm proper patient, proper procedure. Following that an 8 mm incision was made in left upper quadrant, Veress needle was inserted and abdomen was insufflated to 15 mmHg. Veress needle was removed. 8 mm Optiview port was used to gain access to the abdomen. Once the abdomen was entered three more ports were placed across the mid abdomen into the right upper quadrant. Robot was docked to the ports. Once the robot was docked the fundus of the gallbladder was elevated up to her right shoulder. Omental adhesions to the gallbladder were dissected free using combination sharp and blunt dissection. The neck of the gallbladder was retracted and cystic duct and cystic artery were carefully dissected free using blunt and sharp dissection. Once they were both clearly identified they were both were doubly clipped and cut. The gallbladder was then dissected free from the gallbladder fossa using electrocautery. Once the gallbladder was completely removed it was placed inside 5 mm Endo Catch bag and brought out through the right lateral port site. Once the gallbladder was removed the abdomen was examined to confirm hemostasis. Ports were then removed. The abdomen was desufflated. Skin incisions were closed with 4-0 Vicryl subcuticular sutures. The abdomen was cleaned and dried; Steri-Strips, 4 x 4 and tape were applied.
[2020-09-05] MEDS ORDERED: UNRESOLVED CLARIFICATION ENTRY XX SCH (00:01)
== END 2020-09-04 13:45 | disposition home or self-care (01) ==
LOC: M SDC 09:20
PROVIDERS: ATTEND Surgery
DX: K80.10 Calculus of gallbladder with chronic cholecystitis without obstruction (principal); R51.9 Headache, unspecified; F17.218 Nicotine dependence, cigarettes, with other nicotine-induced disorders
CPT/HCPCS: 47562; 81025; 88304; J0131; J1100; J1170; J1885; J2250; J2405; J3010; S2900